=== PATIENT | male | born 1965 | race Hispanic/Latino ===

== ENCOUNTER 2017-04-28 07:06 | Inpatient (IN) | payer SELFPAY ==
[2017-04-28 08:15] LABS: Hemoglobin 16.5 gm/dl (11.8-15.2); Mean Corpuscular HGB Conc 34 % (32-34); Mean Corpuscular Hemoglobin 33 pg (28-32); Mean Corpuscular Volume 96 fl (84-94); Platelet Count 287 K/mm3 (140-440)
[2017-04-28 08:22] LABS: Albumin 3.7 g/dL (3.9-5); Calcium 7.9 mg/dL (8.4-10.2)
[2017-04-28 08:26] LABS: INR 1.03 (0.87-1.13)
[2017-04-28] MEDS ORDERED: D50W (25GM) Syringe IV ONE ×3 (08:33→11:00)
[2017-04-28] MEDS ORDERED: NACL 0.9% 1000 ML 1,000 ML IV ONE (08:42)
--- NOTE | 2017-04-28 09:06 | XRay Report ---
AP CHEST: HISTORY: Ultra mental status, possible overdose, evaluate for aspiration AP view of the chest demonstrates a normal mediastinal and cardiac contour with clear lungs and normal bony and soft tissue structures. IMPRESSION: Unremarkable AP chest. No convincing evidence for aspiration at this time.
[2017-04-28] MEDS ORDERED: D50W (25GM) Vial IV ONE (09:17)
[2017-04-28 09:28] LABS: Bacteria,Urine 1+ /HPF (Negative); Bilirubin,Urine NEG (Negative); Blood,Urine LG (Negative); Color,Urine Amber (Yellow); Mucus,Urine FEW /HPF; Nitrite,Urine NEG (Negative)
[2017-04-28] MEDS ORDERED: ZOSYN/NS 4.5GM/100ML 4.5 GM/100 ML VIAL IV ONE (09:30)
[2017-04-28] MEDS ORDERED: VITAMIN B-1 100 MG, FOLVITE 1 MG, INFUVITE 10 ML in NACL 0.9% 1000 ML 1,000 ML IV ONE (09:30)
--- NOTE | 2017-04-28 09:31 | Emergency Department Report ---
ED Altered Mental Status HPI - General Chief Complaint: Overdose Stated Complaint: OVERDOSE Time Seen by Provider: 04/28/17 08:32 Source: EMS Mode of arrival: Stretcher Limitations: Altered Mental Status, Physical Limitation - History of Present Illness Initial Comments: 52-year-old male with unknown past medical history presents to the hospital after being found at [facility] unresponsive with pinpoint pupils. GCS 3. Patient received Narcan 2 mg IV and became responsive to sternal rub with improved [place] score of 12. Her labs showed that the patient's glucose was in the 50s and gave her D50 initiated. Patient is lethargic with slurred speech. Complains of left-sided abdominal pain. He denies drug use. He denies daily alcohol use. He also has dried blood in his mouth/tongue without signs of active bleeding or laceration. No other history of present illness is available at this time. - Related Data Allergies Allergy/AdvReac Type Severity Reaction Status Date / Time No Known Allergies Allergy Unverified 04/28/17 13:42 ED Review of Systems ROS: Stated complaint: OVERDOSE Other details as noted in HPI Comment: Unobtainable due to pts medical conditions (Limited due to alteration in mental status see HPI.) ED Physical Exam - General Limitations: Altered Mental Status, Physical Limitation - Other Other exam information: General: Lethargic but arousable to tactile stimulation Head exam: Atraumatic, normocephalic Eyes exam: Normal appearance, pupil asymmetry right pupil 3 mm, left pupil 2 mm , reactive ENT: Moist mucous membrane, dry blood in mild without laceration or active bleeding Neck exam: Normal inspection, full range of motion, no meningismus nontender Respiratory exam: Clear to auscultation bilateral, no wheezes, rales, crackles Cardiovascular: Normal rate and rhythm Abdomen: Soft, nondistended, left upper quadrant scar. 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 Equal foot dorsiflexion. Slurredm speech. No facial droop. Sensation grossly intact Psychiatric: normal affect, normal mood Skin: Erythematous area to the left buttock that is blanching ED Course Vital Signs 04/28/17 04/28/17 04/28/17 07:11 07:16 07:30 Temperature 98.2 F Pulse Rate 115 H 115 H 113 H Respiratory 14 14 16 Rate Blood Pressure 144/87 144/87 134/80 Blood Pressure 134/80 [Right] O2 Sat by Pulse 92 90 94 Oximetry 04/28/17 04/28/17 04/28/17 07:46 08:00 08:16 Temperature Pulse Rate 114 H 109 H 107 H Respiratory 13 13 11 L Rate Blood Pressure 144/79 144/79 144/79 Blood Pressure [Right] O2 Sat by Pulse 94 93 93 Oximetry 04/28/17 04/28/17 04/28/17 08:30 08:46 09:00 Temperature Pulse Rate 105 H 103 H 104 H Respiratory 9 L 13 10 L Rate Blood Pressure 144/79 144/79 144/79 Blood Pressure [Right] O2 Sat by Pulse 94 92 94 Oximetry 04/28/17 04/28/17 04/28/17 09:16 09:30 09:46 Temperature Pulse Rate 106 H 105 H 101 H Respiratory 12 11 L 10 L Rate Blood Pressure 144/79 144/79 144/79 Blood Pressure [Right] O2 Sat by Pulse 94 94 94 Oximetry 04/28/17 04/28/17 04/28/17 10:28 10:30 10:46 Temperature Pulse Rate Respiratory Rate Blood Pressure 144/79 107/72 107/72 Blood Pressure [Right] O2 Sat by Pulse 94 94 93 Oximetry 04/28/17 04/28/17 04/28/17 11:00 11:16 11:30 Temperature Pulse Rate 104 H 107 H 108 H Respiratory 12 12 11 L Rate Blood Pressure 108/75 108/75 118/69 Blood Pressure [Right] O2 Sat by Pulse 88 89 89 Oximetry 04/28/17 04/28/17 04/28/17 11:46 12:00 12:16 Temperature Pulse Rate 107 H 102 H 98 H Respiratory 11 L 9 L Rate Blood Pressure 118/69 118/69 96/62 Blood Pressure [Right] O2 Sat by Pulse 92 93 94 Oximetry 04/28/17 04/28/17 04/28/17 12:30 12:46 13:00 Temperature Pulse Rate 102 H 103 H 105 H Respiratory 10 L 12 12 Rate Blood Pressure 96/62 112/69 115/70 Blood Pressure [Right] O2 Sat by Pulse 94 94 93 Oximetry 04/28/17 04/28/17 04/28/17 13:16 13:30 13:46 Temperature Pulse Rate 103 H 100 H 94 H Respiratory 8 L 9 L 9 L Rate Blood Pressure 115/70 108/74 108/74 Blood Pressure [Right] O2 Sat by Pulse 96 94 96 Oximetry 04/28/17 13:52 Temperature Pulse Rate 96 H Respiratory 11 L Rate Blood Pressure Blood Pressure 108/74 [Right] O2 Sat by Pulse Oximetry - Reevaluation(s) Reevaluation #1: 04/28/17 15:36 Patient remains lethargic during the ED stay. Patient required multiple doses of D50 for recurrent hypoglycemia but has remained stable for several hours. Stool samples ordered at this time because patient is having multiple episodes of diarrhea in the ED. - Lab Data Result diagrams: 04/28/17 07:43 04/28/17 07:43 Lab Results 04/28/17 04/28/17 04/28/17 Range/Units 07:43 07:43 07:43 WBC 34.6 H (4.5-11.0) K/mm3 RBC 5.00 (3.65-5.03) M/mm3 Hgb 16.5 H (11.8-15.2) gm/dl Hct 48.0 H (35.5-45.6) % MCV 96 H (84-94) fl MCH 33 H (28-32) pg MCHC 34 (32-34) % RDW 16.0 H (13.2-15.2) % Plt Count 287 (140-440) K/mm3 Add Manual Diff Complete Total Counted 100 Seg Neuts % (Manual) 90.0 H (40.0-70.0) % Band Neutrophils % 1.0 % Lymphocytes % (Manual) 2.0 L (13.4-35.0) % Reactive Lymphs % (Man) 0 % Monocytes % (Manual) 7.0 (0.0-7.3) % Eosinophils % (Manual) 0 (0.0-4.3) % Basophils % (Manual) 0 (0.0-1.8) % Metamyelocytes % 0 % Myelocytes % 0 % Promyelocytes % 0 % Blast Cells % 0 % Nucleated RBC % Not Reportable Seg Neutrophils # Man 31.1 H (1.8-7.7) K/mm3 Band Neutrophils # 0.3 K/mm3 Lymphocytes # (Manual) 0.7 L (1.2-5.4) K/mm3 Abs React Lymphs (Man) 0.0 K/mm3 Monocytes # (Manual) 2.4 H (0.0-0.8) K/mm3 Eosinophils # (Manual) 0.0 (0.0-0.4) K/mm3 Basophils # (Manual) 0.0 (0.0-0.1) K/mm3 Metamyelocytes # 0.0 K/mm3 Myelocytes # 0.0 K/mm3 Promyelocytes # 0.0 K/mm3 Blast Cells # 0.0 K/mm3 WBC Morphology Not Reportable Hypersegmented Neuts Not Reportable Hyposegmented Neuts Not Reportable Hypogranular Neuts Not Reportable Smudge Cells Not Reportable Toxic Granulation Not Reportable Toxic Vacuolation Not Reportable Dohle Bodies Not Reportable Pelger-Huet Anomaly Not Reportable Merlene Rods Not Reportable Platelet Estimate Not Reportable Clumped Platelets Not Reportable Plt Clumps, EDTA Not Reportable Large Platelets Not Reportable Giant Platelets Not Reportable Platelet Satelliting Not Reportable Plt Morphology Comment Not Reportable RBC Morphology Normal Dimorphic RBCs Not Reportable Polychromasia Not Reportable Hypochromasia Not Reportable Poikilocytosis Not Reportable Anisocytosis Not Reportable Microcytosis Not Reportable Macrocytosis Not Reportable Spherocytes Not Reportable Pappenheimer Bodies Not Reportable Sickle Cells Not Reportable Target Cells Not Reportable Tear Drop Cells Not Reportable Ovalocytes Not Reportable Helmet Cells Not Reportable Singer-[place] Bodies Not Reportable [place] Rings Not Reportable [place] Cells Not Reportable Bite Cells Not Reportable Crenated Cell Not Reportable Elliptocytes Not Reportable Acanthocytes (Spur) Not Reportable Rouleaux Not Reportable Hemoglobin C Crystals Not Reportable Schistocytes Not Reportable Malaria parasites Not Reportable Gopi Bodies Not Reportable Hem Pathologist Commnt No PT 14.0 (12.2-14.9) Sec. INR 1.03 (0.87-1.13) APTT (24.2-36.6) Sec. VBG pH (7.320-7.420) Sodium (137-145) mmol/L Potassium (3.6-5.0) mmol/L Chloride (98-107) mmol/L Carbon Dioxide (22-30) mmol/L Anion Gap mmol/L BUN (9-20) mg/dL Creatinine (0.8-1.5) mg/dL Estimated GFR ml/min BUN/Creatinine Ratio % Glucose (75-100) mg/dL POC Glucose (70-105) Osmolality 290 Mosm/kg Lactic Acid (0.7-2.0) mmol/L Calcium (8.4-10.2) mg/dL Magnesium (1.7-2.3) mg/dL Total Bilirubin (0.1-1.2) mg/dL AST (5-40) units/L ALT (7-56) units/L Alkaline Phosphatase (35-129) units/L Ammonia (25-60) umol/L Total Creatine Kinase (55-170) units/L CK-MB (CK-2) (0.0-4.0) ng/mL CK-MB (CK-2) Rel Index (0-4) Troponin T (0.00-0.029) ng/mL Total Protein (6.3-8.2) g/dL Albumin (3.9-5) g/dL Albumin/Globulin Ratio % Triglycerides (2-149) mg/dL Cholesterol (50-199) mg/dL LDL Cholesterol Direct (50-130) mg/dL HDL Cholesterol (40-59) mg/dL Cholesterol/HDL Ratio % Lipase (13-60) units/L Urine Color (Yellow) Urine Turbidity (Clear) Urine pH (5.0-7.0) Ur Specific Anna (1.003-1.030) Urine Protein (Negative) mg/dL Urine Glucose (UA) (Negative) mg/dL Urine Ketones (Negative) mg/dL Urine Blood (Negative) Urine Nitrite (Negative) Urine Bilirubin (Negative) Urine Urobilinogen (<2.0) mg/dL Ur Leukocyte Esterase (Negative) Urine WBC (Auto) (0.0-6.0) /HPF Urine RBC (Auto) (0.0-6.0) /HPF U Epithel Cells (Auto) (0-13.0) /HPF Urine Bacteria (Auto) (Negative) /HPF Urine Mucus /HPF Salicylates (2.8-20.0) mg/dL Urine Opiates Screen Urine Methadone Screen Acetaminophen (10.0-30.0) ug/mL Ur Barbiturates Screen Ur Phencyclidine Scrn Ur Amphetamines Screen Phenobarbital < 2.4 L (15.0-40.0) mg/L U Benzodiazepines Scrn Urine Cocaine Screen U Marijuana (THC) Screen Drugs of Abuse Note Plasma/Serum Alcohol (0-0.07) gm% Hepatitis A IgM Ab (NonReactive) Hep Bs Antigen (Negative) Hep B Core IgM Ab (NonReactive) Hepatitis C Antibody (NonReactive) 04/28/17 04/28/17 04/28/17 Range/Units 07:43 07:43 07:47 WBC (4.5-11.0) K/mm3 RBC (3.65-5.03) M/mm3 Hgb (11.8-15.2) gm/dl Hct (35.5-45.6) % MCV (84-94) fl MCH (28-32) pg MCHC (32-34) % RDW (13.2-15.2) % Plt Count (140-440) K/mm3 Add Manual Diff Total Counted Seg Neuts % (Manual) (40.0-70.0) % Band Neutrophils % % Lymphocytes % (Manual) (13.4-35.0) % Reactive Lymphs % (Man) % Monocytes % (Manual) (0.0-7.3) % Eosinophils % (Manual) (0.0-4.3) % Basophils % (Manual) (0.0-1.8) % Metamyelocytes % % Myelocytes % % Promyelocytes % % Blast Cells % % Nucleated RBC % Seg Neutrophils # Man (1.8-7.7) K/mm3 Band Neutrophils # K/mm3 Lymphocytes # (Manual) (1.2-5.4) K/mm3 Abs React Lymphs (Man) K/mm3 Monocytes # (Manual) (0.0-0.8) K/mm3 Eosinophils # (Manual) (0.0-0.4) K/mm3 Basophils # (Manual) (0.0-0.1) K/mm3 Metamyelocytes # K/mm3 Myelocytes # K/mm3 Promyelocytes # K/mm3 Blast Cells # K/mm3 WBC Morphology Hypersegmented Neuts Hyposegmented Neuts Hypogranular Neuts Smudge Cells Toxic Granulation Toxic Vacuolation Dohle Bodies Pelger-Huet Anomaly Merlene Rods Platelet Estimate Clumped Platelets Plt Clumps, EDTA Large Platelets Giant Platelets Platelet Satelliting Plt Morphology Comment RBC Morphology Dimorphic RBCs Polychromasia Hypochromasia Poikilocytosis Anisocytosis Microcytosis Macrocytosis Spherocytes Pappenheimer Bodies Sickle Cells Target Cells Tear Drop Cells Ovalocytes Helmet Cells Singer-[place] Bodies Lam[place] Rings Victor[place] Cells Bite Cells Crenated Cell Elliptocytes Acanthocytes (Spur) Rouleaux Hemoglobin C Crystals Schistocytes Malaria parasites Gopi Bodies Hem Pathologist Commnt PT (12.2-14.9) Sec. INR (0.87-1.13) APTT 29.2 (24.2-36.6) Sec. VBG pH (7.320-7.420) Sodium 144 (137-145) mmol/L Potassium 3.5 L (3.6-5.0) mmol/L Chloride 105.2 (98-107) mmol/L Carbon Dioxide 21 L (22-30) mmol/L Anion Gap 21 mmol/L BUN 23 H (9-20) mg/dL Creatinine 1.4 (0.8-1.5) mg/dL Estimated GFR 54 ml/min BUN/Creatinine Ratio 16 % Glucose 25 L* (75-100) mg/dL POC Glucose (70-105) Osmolality Mosm/kg Lactic Acid (0.7-2.0) mmol/L Calcium 7.9 L (8.4-10.2) mg/dL Magnesium (1.7-2.3) mg/dL Total Bilirubin 1.90 H (0.1-1.2) mg/dL AST 342 H (5-40) units/L ALT 139 H (7-56) units/L Alkaline Phosphatase 147 H (35-129) units/L Ammonia (25-60) umol/L Total Creatine Kinase 7440 H (55-170) units/L CK-MB (CK-2) (0.0-4.0) ng/mL CK-MB (CK-2) Rel Index (0-4) Troponin T (0.00-0.029) ng/mL Total Protein 6.8 (6.3-8.2) g/dL Albumin 3.7 L (3.9-5) g/dL Albumin/Globulin Ratio 1.2 % Triglycerides (2-149) mg/dL Cholesterol (50-199) mg/dL LDL Cholesterol Direct (50-130) mg/dL HDL Cholesterol (40-59) mg/dL Cholesterol/HDL Ratio % Lipase (13-60) units/L Urine Color (Yellow) Urine Turbidity (Clear) Urine pH (5.0-7.0) Ur Specific Anna (1.003-1.030) Urine Protein (Negative) mg/dL Urine Glucose (UA) (Negative) mg/dL Urine Ketones (Negative) mg/dL Urine Blood (Negative) Urine Nitrite (Negative) Urine Bilirubin (Negative) Urine Urobilinogen (<2.0) mg/dL Ur Leukocyte Esterase (Negative) Urine WBC (Auto) (0.0-6.0) /HPF Urine RBC (Auto) (0.0-6.0) /HPF U Epithel Cells (Auto) (0-13.0) /HPF Urine Bacteria (Auto) (Negative) /HPF Urine Mucus /HPF Salicylates (2.8-20.0) mg/dL Urine Opiates Screen Urine Methadone Screen Acetaminophen (10.0-30.0) ug/mL Ur Barbiturates Screen Ur Phencyclidine Scrn Ur Amphetamines Screen Phenobarbital (15.0-40.0) mg/L U Benzodiazepines Scrn Urine Cocaine Screen U Marijuana (THC) Screen Drugs of Abuse Note Plasma/Serum Alcohol (0-0.07) gm% Hepatitis A IgM Ab (NonReactive) Hep Bs Antigen (Negative) Hep B Core IgM Ab (NonReactive) Hepatitis C Antibody (NonReactive) 04/28/17 04/28/17 04/28/17 Range/Units 08:36 08:57 08:57 WBC (4.5-11.0) K/mm3 RBC (3.65-5.03) M/mm3 Hgb (11.8-15.2) gm/dl Hct (35.5-45.6) % MCV (84-94) fl MCH (28-32) pg MCHC (32-34) % RDW (13.2-15.2) % Plt Count (140-440) K/mm3 Add Manual Diff Total Counted Seg Neuts % (Manual) (40.0-70.0) % Band Neutrophils % % Lymphocytes % (Manual) (13.4-35.0) % Reactive Lymphs % (Man) % Monocytes % (Manual) (0.0-7.3) % Eosinophils % (Manual) (0.0-4.3) % Basophils % (Manual) (0.0-1.8) % Metamyelocytes % % Myelocytes % % Promyelocytes % % Blast Cells % % Nucleated RBC % Seg Neutrophils # Man (1.8-7.7) K/mm3 Band Neutrophils # K/mm3 Lymphocytes # (Manual) (1.2-5.4) K/mm3 Abs React Lymphs (Man) K/mm3 Monocytes # (Manual) (0.0-0.8) K/mm3 Eosinophils # (Manual) (0.0-0.4) K/mm3 Basophils # (Manual) (0.0-0.1) K/mm3 Metamyelocytes # K/mm3 Myelocytes # K/mm3 Promyelocytes # K/mm3 Blast Cells # K/mm3 WBC Morphology Hypersegmented Neuts Hyposegmented Neuts Hypogranular Neuts Smudge Cells Toxic Granulation Toxic Vacuolation Dohle Bodies Pelger-Huet Anomaly Merlene Rods Platelet Estimate Clumped Platelets Plt Clumps, EDTA Large Platelets Giant Platelets Platelet Satelliting Plt Morphology Comment RBC Morphology Dimorphic RBCs Polychromasia Hypochromasia Poikilocytosis Anisocytosis Microcytosis Macrocytosis Spherocytes Pappenheimer Bodies Sickle Cells Target Cells Tear Drop Cells Ovalocytes Helmet Cells Singer-[place] Bodies Lam[place] Rings [place] Cells Bite Cells Crenated Cell Elliptocytes Acanthocytes (Spur) Rouleaux Hemoglobin C Crystals Schistocytes Malaria parasites Gopi Bodies Hem Pathologist Commnt PT (12.2-14.9) Sec. INR (0.87-1.13) APTT (24.2-36.6) Sec. VBG pH (7.320-7.420) Sodium (137-145) mmol/L Potassium (3.6-5.0) mmol/L Chloride (98-107) mmol/L Carbon Dioxide (22-30) mmol/L Anion Gap mmol/L BUN (9-20) mg/dL Creatinine (0.8-1.5) mg/dL Estimated GFR ml/min BUN/Creatinine Ratio % Glucose (75-100) mg/dL POC Glucose < 40 L (70-105) Osmolality Mosm/kg Lactic Acid (0.7-2.0) mmol/L Calcium (8.4-10.2) mg/dL Magnesium (1.7-2.3) mg/dL Total Bilirubin (0.1-1.2) mg/dL AST (5-40) units/L ALT (7-56) units/L Alkaline Phosphatase (35-129) units/L Ammonia 72.0 H (25-60) umol/L Total Creatine Kinase (55-170) units/L CK-MB (CK-2) (0.0-4.0) ng/mL CK-MB (CK-2) Rel Index (0-4) Troponin T (0.00-0.029) ng/mL Total Protein (6.3-8.2) g/dL Albumin (3.9-5) g/dL Albumin/Globulin Ratio % Triglycerides (2-149) mg/dL Cholesterol (50-199) mg/dL LDL Cholesterol Direct (50-130) mg/dL HDL Cholesterol (40-59) mg/dL Cholesterol/HDL Ratio % Lipase (13-60) units/L Urine Color (Yellow) Urine Turbidity (Clear) Urine pH (5.0-7.0) Ur Specific Anna (1.003-1.030) Urine Protein (Negative) mg/dL Urine Glucose (UA) (Negative) mg/dL Urine Ketones (Negative) mg/dL Urine Blood (Negative) Urine Nitrite (Negative) Urine Bilirubin (Negative) Urine Urobilinogen (<2.0) mg/dL Ur Leukocyte Esterase (Negative) Urine WBC (Auto) (0.0-6.0) /HPF Urine RBC (Auto) (0.0-6.0) /HPF U Epithel Cells (Auto) (0-13.0) /HPF Urine Bacteria (Auto) (Negative) /HPF Urine Mucus /HPF Salicylates (2.8-20.0) mg/dL Urine Opiates Screen Urine Methadone Screen Acetaminophen (10.0-30.0) ug/mL Ur Barbiturates Screen Ur Phencyclidine Scrn Ur Amphetamines Screen Phenobarbital (15.0-40.0) mg/L U Benzodiazepines Scrn Urine Cocaine Screen U Marijuana (THC) Screen Drugs of Abuse Note Plasma/Serum Alcohol (0-0.07) gm% Hepatitis A IgM Ab Non-reactive (NonReactive) Hep Bs Antigen Non-reactive (Negative) Hep B Core IgM Ab Non-reactive (NonReactive) Hepatitis C Antibody Non-reactive (NonReactive) 04/28/17 04/28/17 04/28/17 Range/Units 08:57 08:57 08:57 WBC (4.5-11.0) K/mm3 RBC (3.65-5.03) M/mm3 Hgb (11.8-15.2) gm/dl Hct (35.5-45.6) % MCV (84-94) fl MCH (28-32) pg MCHC (32-34) % RDW (13.2-15.2) % Plt Count (140-440) K/mm3 Add Manual Diff Total Counted Seg Neuts % (Manual) (40.0-70.0) % Band Neutrophils % % Lymphocytes % (Manual) (13.4-35.0) % Reactive Lymphs % (Man) % Monocytes % (Manual) (0.0-7.3) % Eosinophils % (Manual) (0.0-4.3) % Basophils % (Manual) (0.0-1.8) % Metamyelocytes % % Myelocytes % % Promyelocytes % % Blast Cells % % Nucleated RBC % Seg Neutrophils # Man (1.8-7.7) K/mm3 Band Neutrophils # K/mm3 Lymphocytes # (Manual) (1.2-5.4) K/mm3 Abs React Lymphs (Man) K/mm3 Monocytes # (Manual) (0.0-0.8) K/mm3 Eosinophils # (Manual) (0.0-0.4) K/mm3 Basophils # (Manual) (0.0-0.1) K/mm3 Metamyelocytes # K/mm3 Myelocytes # K/mm3 Promyelocytes # K/mm3 Blast Cells # K/mm3 WBC Morphology Hypersegmented Neuts Hyposegmented Neuts Hypogranular Neuts Smudge Cells Toxic Granulation Toxic Vacuolation Dohle Bodies Pelger-Huet Anomaly Merlene Rods Platelet Estimate Clumped Platelets Plt Clumps, EDTA Large Platelets Giant Platelets Platelet Satelliting Plt Morphology Comment RBC Morphology Dimorphic RBCs Polychromasia Hypochromasia Poikilocytosis Anisocytosis Microcytosis Macrocytosis Spherocytes Pappenheimer Bodies Sickle Cells Target Cells Tear Drop Cells Ovalocytes Helmet Cells Singer-[place] Bodies Lam[place] Rings Victor[place] Cells Bite Cells Crenated Cell Elliptocytes Acanthocytes (Spur) Rouleaux Hemoglobin C Crystals Schistocytes Malaria parasites Gopi Bodies Hem Pathologist Commnt PT (12.2-14.9) Sec. INR (0.87-1.13) APTT (24.2-36.6) Sec. VBG pH 7.275 L (7.320-7.420) Sodium (137-145) mmol/L Potassium (3.6-5.0) mmol/L Chloride (98-107) mmol/L Carbon Dioxide (22-30) mmol/L Anion Gap mmol/L BUN (9-20) mg/dL Creatinine (0.8-1.5) mg/dL Estimated GFR ml/min BUN/Creatinine Ratio % Glucose (75-100) mg/dL POC Glucose (70-105) Osmolality Mosm/kg Lactic Acid 2.90 H* (0.7-2.0) mmol/L Calcium (8.4-10.2) mg/dL Magnesium 2.30 (1.7-2.3) mg/dL Total Bilirubin (0.1-1.2) mg/dL AST (5-40) units/L ALT (7-56) units/L Alkaline Phosphatase (35-129) units/L Ammonia (25-60) umol/L Total Creatine Kinase (55-170) units/L CK-MB (CK-2) (0.0-4.0) ng/mL CK-MB (CK-2) Rel Index (0-4) Troponin T (0.00-0.029) ng/mL Total Protein (6.3-8.2) g/dL Albumin (3.9-5) g/dL Albumin/Globulin Ratio % Triglycerides (2-149) mg/dL Cholesterol (50-199) mg/dL LDL Cholesterol Direct (50-130) mg/dL HDL Cholesterol (40-59) mg/dL Cholesterol/HDL Ratio % Lipase (13-60) units/L Urine Color (Yellow) Urine Turbidity (Clear) Urine pH (5.0-7.0) Ur Specific Anna (1.003-1.030) Urine Protein (Negative) mg/dL Urine Glucose (UA) (Negative) mg/dL Urine Ketones (Negative) mg/dL Urine Blood (Negative) Urine Nitrite (Negative) Urine Bilirubin (Negative) Urine Urobilinogen (<2.0) mg/dL Ur Leukocyte Esterase (Negative) Urine WBC (Auto) (0.0-6.0) /HPF Urine RBC (Auto) (0.0-6.0) /HPF U Epithel Cells (Auto) (0-13.0) /HPF Urine Bacteria (Auto) (Negative) /HPF Urine Mucus /HPF Salicylates (2.8-20.0) mg/dL Urine Opiates Screen Urine Methadone Screen Acetaminophen (10.0-30.0) ug/mL Ur Barbiturates Screen Ur Phencyclidine Scrn Ur Amphetamines Screen Phenobarbital (15.0-40.0) mg/L U Benzodiazepines Scrn Urine Cocaine Screen U Marijuana (THC) Screen Drugs of Abuse Note Plasma/Serum Alcohol (0-0.07) gm% Hepatitis A IgM Ab (NonReactive) Hep Bs Antigen (Negative) Hep B Core IgM Ab (NonReactive) Hepatitis C Antibody (NonReactive) 04/28/17 04/28/17 04/28/17 Range/Units 09:09 09:09 09:09 WBC (4.5-11.0) K/mm3 RBC (3.65-5.03) M/mm3 Hgb (11.8-15.2) gm/dl Hct (35.5-45.6) % MCV (84-94) fl MCH (28-32) pg MCHC (32-34) % RDW (13.2-15.2) % Plt Count (140-440) K/mm3 Add Manual Diff Total Counted Seg Neuts % (Manual) (40.0-70.0) % Band Neutrophils % % Lymphocytes % (Manual) (13.4-35.0) % Reactive Lymphs % (Man) % Monocytes % (Manual) (0.0-7.3) % Eosinophils % (Manual) (0.0-4.3) % Basophils % (Manual) (0.0-1.8) % Metamyelocytes % % Myelocytes % % Promyelocytes % % Blast Cells % % Nucleated RBC % Seg Neutrophils # Man (1.8-7.7) K/mm3 Band Neutrophils # K/mm3 Lymphocytes # (Manual) (1.2-5.4) K/mm3 Abs React Lymphs (Man) K/mm3 Monocytes # (Manual) (0.0-0.8) K/mm3 Eosinophils # (Manual) (0.0-0.4) K/mm3 Basophils # (Manual) (0.0-0.1) K/mm3 Metamyelocytes # K/mm3 Myelocytes # K/mm3 Promyelocytes # K/mm3 Blast Cells # K/mm3 WBC Morphology Hypersegmented Neuts Hyposegmented Neuts Hypogranular Neuts Smudge Cells Toxic Granulation Toxic Vacuolation Dohle Bodies Pelger-Huet Anomaly Merlene Rods Platelet Estimate Clumped Platelets Plt Clumps, EDTA Large Platelets Giant Platelets Platelet Satelliting Plt Morphology Comment RBC Morphology Dimorphic RBCs Polychromasia Hypochromasia Poikilocytosis Anisocytosis Microcytosis Macrocytosis Spherocytes Pappenheimer Bodies Sickle Cells Target Cells Tear Drop Cells Ovalocytes Helmet Cells Singer-[place] Bodies Lamont Rings [place] Cells Bite Cells Crenated Cell Elliptocytes Acanthocytes (Spur) Rouleaux Hemoglobin C Crystals Schistocytes Malaria parasites Gopi Bodies Hem Pathologist Commnt PT (12.2-14.9) Sec. INR (0.87-1.13) APTT (24.2-36.6) Sec. VBG pH (7.320-7.420) Sodium (137-145) mmol/L Potassium (3.6-5.0) mmol/L Chloride (98-107) mmol/L Carbon Dioxide (22-30) mmol/L Anion Gap mmol/L BUN (9-20) mg/dL Creatinine (0.8-1.5) mg/dL Estimated GFR ml/min BUN/Creatinine Ratio % Glucose (75-100) mg/dL POC Glucose (70-105) Osmolality Mosm/kg Lactic Acid (0.7-2.0) mmol/L Calcium (8.4-10.2) mg/dL Magnesium (1.7-2.3) mg/dL Total Bilirubin (0.1-1.2) mg/dL AST (5-40) units/L ALT (7-56) units/L Alkaline Phosphatase (35-129) units/L Ammonia (25-60) umol/L Total Creatine Kinase (55-170) units/L CK-MB (CK-2) (0.0-4.0) ng/mL CK-MB (CK-2) Rel Index (0-4) Troponin T (0.00-0.029) ng/mL Total Protein (6.3-8.2) g/dL Albumin (3.9-5) g/dL Albumin/Globulin Ratio % Triglycerides (2-149) mg/dL Cholesterol (50-199) mg/dL LDL Cholesterol Direct (50-130) mg/dL HDL Cholesterol (40-59) mg/dL Cholesterol/HDL Ratio % Lipase (13-60) units/L Urine Color Diamante (Yellow) Urine Turbidity Slightly-cloudy (Clear) Urine pH 5.0 (5.0-7.0) Ur Specific Anna 1.023 (1.003-1.030) Urine Protein 100 mg/dl (Negative) mg/dL Urine Glucose (UA) Neg (Negative) mg/dL Urine Ketones Neg (Negative) mg/dL Urine Blood Lg (Negative) Urine Nitrite Neg (Negative) Urine Bilirubin Neg (Negative) Urine Urobilinogen 4.0 (<2.0) mg/dL Ur Leukocyte Esterase Neg (Negative) Urine WBC (Auto) 15.0 H (0.0-6.0) /HPF Urine RBC (Auto) 11.0 (0.0-6.0) /HPF U Epithel Cells (Auto) 1.0 (0-13.0) /HPF Urine Bacteria (Auto) 1+ (Negative) /HPF Urine Mucus Few /HPF Salicylates < 0.3 L (2.8-20.0) mg/dL Urine Opiates Screen Presumptive positive Urine Methadone Screen Presumptive negative Acetaminophen (10.0-30.0) ug/mL Ur Barbiturates Screen Presumptive negative Ur Phencyclidine Scrn Presumptive negative Ur Amphetamines Screen Presumptive positive Phenobarbital (15.0-40.0) mg/L U Benzodiazepines Scrn Presumptive positive Urine Cocaine Screen Presumptive positive U Marijuana (THC) Screen Presumptive negative Drugs of Abuse Note Disclamer Plasma/Serum Alcohol (0-0.07) gm% Hepatitis A IgM Ab (NonReactive) Hep Bs Antigen (Negative) Hep B Core IgM Ab (NonReactive) Hepatitis C Antibody (NonReactive) 04/28/17 04/28/17 04/28/17 Range/Units 09:09 09:09 09:20 WBC (4.5-11.0) K/mm3 RBC (3.65-5.03) M/mm3 Hgb (11.8-15.2) gm/dl Hct (35.5-45.6) % MCV (84-94) fl MCH (28-32) pg MCHC (32-34) % RDW (13.2-15.2) % Plt Count (140-440) K/mm3 Add Manual Diff Total Counted Seg Neuts % (Manual) (40.0-70.0) % Band Neutrophils % % Lymphocytes % (Manual) (13.4-35.0) % Reactive Lymphs % (Man) % Monocytes % (Manual) (0.0-7.3) % Eosinophils % (Manual) (0.0-4.3) % Basophils % (Manual) (0.0-1.8) % Metamyelocytes % % Myelocytes % % Promyelocytes % % Blast Cells % % Nucleated RBC % Seg Neutrophils # Man (1.8-7.7) K/mm3 Band Neutrophils # K/mm3 Lymphocytes # (Manual) (1.2-5.4) K/mm3 Abs React Lymphs (Man) K/mm3 Monocytes # (Manual) (0.0-0.8) K/mm3 Eosinophils # (Manual) (0.0-0.4) K/mm3 Basophils # (Manual) (0.0-0.1) K/mm3 Metamyelocytes # K/mm3 Myelocytes # K/mm3 Promyelocytes # K/mm3 Blast Cells # K/mm3 WBC Morphology Hypersegmented Neuts Hyposegmented Neuts Hypogranular Neuts Smudge Cells Toxic Granulation Toxic Vacuolation Dohle Bodies Pelger-Huet Anomaly Merlene Rods Platelet Estimate Clumped Platelets Plt Clumps, EDTA Large Platelets Giant Platelets Platelet Satelliting Plt Morphology Comment RBC Morphology Dimorphic RBCs Polychromasia Hypochromasia Poikilocytosis Anisocytosis Microcytosis Macrocytosis Spherocytes Pappenheimer Bodies Sickle Cells Target Cells Tear Drop Cells Ovalocytes Helmet Cells Singer-[place] Bodies Lamont Rings Victorino Cells Bite Cells Crenated Cell Elliptocytes Acanthocytes (Spur) Rouleaux Hemoglobin C Crystals Schistocytes Malaria parasites Gopi Bodies Hem Pathologist Commnt PT (12.2-14.9) Sec. INR (0.87-1.13) APTT (24.2-36.6) Sec. VBG pH (7.320-7.420) Sodium (137-145) mmol/L Potassium (3.6-5.0) mmol/L Chloride (98-107) mmol/L Carbon Dioxide (22-30) mmol/L Anion Gap mmol/L BUN (9-20) mg/dL Creatinine (0.8-1.5) mg/dL Estimated GFR ml/min BUN/Creatinine Ratio % Glucose (75-100) mg/dL POC Glucose 51 L (70-105) Osmolality Mosm/kg Lactic Acid (0.7-2.0) mmol/L Calcium (8.4-10.2) mg/dL Magnesium (1.7-2.3) mg/dL Total Bilirubin (0.1-1.2) mg/dL AST (5-40) units/L ALT (7-56) units/L Alkaline Phosphatase (35-129) units/L Ammonia (25-60) umol/L Total Creatine Kinase (55-170) units/L CK-MB (CK-2) (0.0-4.0) ng/mL CK-MB (CK-2) Rel Index (0-4) Troponin T (0.00-0.029) ng/mL Total Protein (6.3-8.2) g/dL Albumin (3.9-5) g/dL Albumin/Globulin Ratio % Triglycerides (2-149) mg/dL Cholesterol (50-199) mg/dL LDL Cholesterol Direct (50-130) mg/dL HDL Cholesterol (40-59) mg/dL Cholesterol/HDL Ratio % Lipase (13-60) units/L Urine Color (Yellow) Urine Turbidity (Clear) Urine pH (5.0-7.0) Ur Specific Anna (1.003-1.030) Urine Protein (Negative) mg/dL Urine Glucose (UA) (Negative) mg/dL Urine Ketones (Negative) mg/dL Urine Blood (Negative) Urine Nitrite (Negative) Urine Bilirubin (Negative) Urine Urobilinogen (<2.0) mg/dL Ur Leukocyte Esterase (Negative) Urine WBC (Auto) (0.0-6.0) /HPF Urine RBC (Auto) (0.0-6.0) /HPF U Epithel Cells (Auto) (0-13.0) /HPF Urine Bacteria (Auto) (Negative) /HPF Urine Mucus /HPF Salicylates (2.8-20.0) mg/dL Urine Opiates Screen Urine Methadone Screen Acetaminophen < 15.0 (10.0-30.0) ug/mL Ur Barbiturates Screen Ur Phencyclidine Scrn Ur Amphetamines Screen Phenobarbital (15.0-40.0) mg/L U Benzodiazepines Scrn Urine Cocaine Screen U Marijuana (THC) Screen Drugs of Abuse Note Plasma/Serum Alcohol < 0.01 (0-0.07) gm% Hepatitis A IgM Ab (NonReactive) Hep Bs Antigen (Negative) Hep B Core IgM Ab (NonReactive) Hepatitis C Antibody (NonReactive) 04/28/17 04/28/17 04/28/17 Range/Units 10:40 12:47 13:23 WBC (4.5-11.0) K/mm3 RBC (3.65-5.03) M/mm3 Hgb (11.8-15.2) gm/dl Hct (35.5-45.6) % MCV (84-94) fl MCH (28-32) pg MCHC (32-34) % RDW (13.2-15.2) % Plt Count (140-440) K/mm3 Add Manual Diff Total Counted Seg Neuts % (Manual) (40.0-70.0) % Band Neutrophils % % Lymphocytes % (Manual) (13.4-35.0) % Reactive Lymphs % (Man) % Monocytes % (Manual) (0.0-7.3) % Eosinophils % (Manual) (0.0-4.3) % Basophils % (Manual) (0.0-1.8) % Metamyelocytes % % Myelocytes % % Promyelocytes % % Blast Cells % % Nucleated RBC % Seg Neutrophils # Man (1.8-7.7) K/mm3 Band Neutrophils # K/mm3 Lymphocytes # (Manual) (1.2-5.4) K/mm3 Abs React Lymphs (Man) K/mm3 Monocytes # (Manual) (0.0-0.8) K/mm3 Eosinophils # (Manual) (0.0-0.4) K/mm3 Basophils # (Manual) (0.0-0.1) K/mm3 Metamyelocytes # K/mm3 Myelocytes # K/mm3 Promyelocytes # K/mm3 Blast Cells # K/mm3 WBC Morphology Hypersegmented Neuts Hyposegmented Neuts Hypogranular Neuts Smudge Cells Toxic Granulation Toxic Vacuolation Dohle Bodies Pelger-Huet Anomaly Merlene Rods Platelet Estimate Clumped Platelets Plt Clumps, EDTA Large Platelets Giant Platelets Platelet Satelliting Plt Morphology Comment RBC Morphology Dimorphic RBCs Polychromasia Hypochromasia Poikilocytosis Anisocytosis Microcytosis Macrocytosis Spherocytes Pappenheimer Bodies Sickle Cells Target Cells Tear Drop Cells Ovalocytes Helmet Cells Singer-[place] Bodies Lamont Rings Victorino Cells Bite Cells Crenated Cell Elliptocytes Acanthocytes (Spur) Rouleaux Hemoglobin C Crystals Schistocytes Malaria parasites Gopi Bodies Hem Pathologist Commnt PT (12.2-14.9) Sec. INR (0.87-1.13) APTT (24.2-36.6) Sec. VBG pH (7.320-7.420) Sodium (137-145) mmol/L Potassium (3.6-5.0) mmol/L Chloride (98-107) mmol/L Carbon Dioxide (22-30) mmol/L Anion Gap mmol/L BUN (9-20) mg/dL Creatinine (0.8-1.5) mg/dL Estimated GFR ml/min BUN/Creatinine Ratio % Glucose (75-100) mg/dL POC Glucose 73 79 (70-105) Osmolality Mosm/kg Lactic Acid (0.7-2.0) mmol/L Calcium (8.4-10.2) mg/dL Magnesium (1.7-2.3) mg/dL Total Bilirubin (0.1-1.2) mg/dL AST (5-40) units/L ALT (7-56) units/L Alkaline Phosphatase (35-129) units/L Ammonia (25-60) umol/L Total Creatine Kinase 5552 H (55-170) units/L CK-MB (CK-2) 56.2 H (0.0-4.0) ng/mL CK-MB (CK-2) Rel Index 1.0 (0-4) Troponin T 0.059 H (0.00-0.029) ng/mL Total Protein (6.3-8.2) g/dL Albumin (3.9-5) g/dL Albumin/Globulin Ratio % Triglycerides (2-149) mg/dL Cholesterol (50-199) mg/dL LDL Cholesterol Direct (50-130) mg/dL HDL Cholesterol (40-59) mg/dL Cholesterol/HDL Ratio % Lipase (13-60) units/L Urine Color (Yellow) Urine Turbidity (Clear) Urine pH (5.0-7.0) Ur Specific Anna (1.003-1.030) Urine Protein (Negative) mg/dL Urine Glucose (UA) (Negative) mg/dL Urine Ketones (Negative) mg/dL Urine Blood (Negative) Urine Nitrite (Negative) Urine Bilirubin (Negative) Urine Urobilinogen (<2.0) mg/dL Ur Leukocyte Esterase (Negative) Urine WBC (Auto) (0.0-6.0) /HPF Urine RBC (Auto) (0.0-6.0) /HPF U Epithel Cells (Auto) (0-13.0) /HPF Urine Bacteria (Auto) (Negative) /HPF Urine Mucus /HPF Salicylates (2.8-20.0) mg/dL Urine Opiates Screen Urine Methadone Screen Acetaminophen (10.0-30.0) ug/mL Ur Barbiturates Screen Ur Phencyclidine Scrn Ur Amphetamines Screen Phenobarbital (15.0-40.0) mg/L U Benzodiazepines Scrn Urine Cocaine Screen U Marijuana (THC) Screen Drugs of Abuse Note Plasma/Serum Alcohol (0-0.07) gm% Hepatitis A IgM Ab (NonReactive) Hep Bs Antigen (Negative) Hep B Core IgM Ab (NonReactive) Hepatitis C Antibody (NonReactive) 04/28/17 04/28/17 04/28/17 Range/Units 14:53 Unknown Unknown WBC (4.5-11.0) K/mm3 RBC (3.65-5.03) M/mm3 Hgb (11.8-15.2) gm/dl Hct (35.5-45.6) % MCV (84-94) fl MCH (28-32) pg MCHC (32-34) % RDW (13.2-15.2) % Plt Count (140-440) K/mm3 Add Manual Diff Total Counted Seg Neuts % (Manual) (40.0-70.0) % Band Neutrophils % % Lymphocytes % (Manual) (13.4-35.0) % Reactive Lymphs % (Man) % Monocytes % (Manual) (0.0-7.3) % Eosinophils % (Manual) (0.0-4.3) % Basophils % (Manual) (0.0-1.8) % Metamyelocytes % % Myelocytes % % Promyelocytes % % Blast Cells % % Nucleated RBC % Seg Neutrophils # Man (1.8-7.7) K/mm3 Band Neutrophils # K/mm3 Lymphocytes # (Manual) (1.2-5.4) K/mm3 Abs React Lymphs (Man) K/mm3 Monocytes # (Manual) (0.0-0.8) K/mm3 Eosinophils # (Manual) (0.0-0.4) K/mm3 Basophils # (Manual) (0.0-0.1) K/mm3 Metamyelocytes # K/mm3 Myelocytes # K/mm3 Promyelocytes # K/mm3 Blast Cells # K/mm3 WBC Morphology Hypersegmented Neuts Hyposegmented Neuts Hypogranular Neuts Smudge Cells Toxic Granulation Toxic Vacuolation Dohle Bodies Pelger-Huet Anomaly Merlene Rods Platelet Estimate Clumped Platelets Plt Clumps, EDTA Large Platelets Giant Platelets Platelet Satelliting Plt Morphology Comment RBC Morphology Dimorphic RBCs Polychromasia Hypochromasia Poikilocytosis Anisocytosis Microcytosis Macrocytosis Spherocytes Pappenheimer Bodies Sickle Cells Target Cells Tear Drop Cells Ovalocytes Helmet Cells Singer-[place] Bodies Lamont Rings Victorino Cells Bite Cells Crenated Cell Elliptocytes Acanthocytes (Spur) Rouleaux Hemoglobin C Crystals Schistocytes Malaria parasites Gopi Bodies Hem Pathologist Commnt PT (12.2-14.9) Sec. INR (0.87-1.13) APTT (24.2-36.6) Sec. VBG pH (7.320-7.420) Sodium (137-145) mmol/L Potassium (3.6-5.0) mmol/L Chloride (98-107) mmol/L Carbon Dioxide (22-30) mmol/L Anion Gap mmol/L BUN (9-20) mg/dL Creatinine (0.8-1.5) mg/dL Estimated GFR ml/min BUN/Creatinine Ratio % Glucose (75-100) mg/dL POC Glucose (70-105) Osmolality Mosm/kg Lactic Acid 1.10 (0.7-2.0) mmol/L Calcium (8.4-10.2) mg/dL Magnesium (1.7-2.3) mg/dL Total Bilirubin (0.1-1.2) mg/dL AST (5-40) units/L ALT (7-56) units/L Alkaline Phosphatase (35-129) units/L Ammonia (25-60) umol/L Total Creatine Kinase (55-170) units/L CK-MB (CK-2) (0.0-4.0) ng/mL CK-MB (CK-2) Rel Index (0-4) Troponin T 0.058 H (0.00-0.029) ng/mL Total Protein (6.3-8.2) g/dL Albumin (3.9-5) g/dL Albumin/Globulin Ratio % Triglycerides 64 (2-149) mg/dL Cholesterol 140 (50-199) mg/dL LDL Cholesterol Direct 64 (50-130) mg/dL HDL Cholesterol 64 H (40-59) mg/dL Cholesterol/HDL Ratio 2.18 % Lipase 208 H (13-60) units/L Urine Color (Yellow) Urine Turbidity (Clear) Urine pH (5.0-7.0) Ur Specific Anna (1.003-1.030) Urine Protein (Negative) mg/dL Urine Glucose (UA) (Negative) mg/dL Urine Ketones (Negative) mg/dL Urine Blood (Negative) Urine Nitrite (Negative) Urine Bilirubin (Negative) Urine Urobilinogen (<2.0) mg/dL Ur Leukocyte Esterase (Negative) Urine WBC (Auto) (0.0-6.0) /HPF Urine RBC (Auto) (0.0-6.0) /HPF U Epithel Cells (Auto) (0-13.0) /HPF Urine Bacteria (Auto) (Negative) /HPF Urine Mucus /HPF Salicylates (2.8-20.0) mg/dL Urine Opiates Screen Urine Methadone Screen Acetaminophen (10.0-30.0) ug/mL Ur Barbiturates Screen Ur Phencyclidine Scrn Ur Amphetamines Screen Phenobarbital (15.0-40.0) mg/L U Benzodiazepines Scrn Urine Cocaine Screen U Marijuana (THC) Screen Drugs of Abuse Note Plasma/Serum Alcohol (0-0.07) gm% Hepatitis A IgM Ab (NonReactive) Hep Bs Antigen (Negative) Hep B Core IgM Ab (NonReactive) Hepatitis C Antibody (NonReactive) - EKG Data -: EKG Interpreted by Me (early R-wave transistion) EKG shows normal: sinus rhythm, axis (28), QRS complexes (101), ST-T waves (no ST elevation PR or T inversion) Rate: tachycardia (102) - Radiology Data Radiology results: report reviewed read by radiologist cxr: naf CT head: No acute processes. Positive motion artifact. Maxillary sinus mucous retention cyst versus polyp on the right CT cervical spine: Degenerative peripheral stenosis left worse than the right C5 /7and C6/C7 CT abdomen and pelvis with IV contrast: Bilateral lower lobe consolidation subsegmental atelectasis and/or infiltrate. Diffuse fatty infiltration of the liver. Left adrenal adenoma. Nonobstructive bilateral renal calculi. Subtle bilateral renal cysts. 3.2 cm in AP diameter infrarenal abdominal aortic aneurysm. top normal size mildly enlarged prostate. Mild degenerative left is L5/S1 neural foraminal stenosis. Soft tissue swelling underlying the midline lumbar subcutaneous fat posterior as well as overlying the left buttocks and left hip. Splenectomy - Medical Decision Making Patient altered and requires admission Possible sepsis with leukocytosis and infiltrates identified on chest x-ray. Patient covered with broad-spectrum antibiotics vancomycin and Zosyn UA has mild increased wbc's. Blood cultures and urine cultures pending Patient also has elevated LFTs with hepatitis panel pending and elevated ammonia. Possible alcohol abuse is suspected. Banana bag also ordered Awaiting UDS and toxicology screen at disposition at 11:47 AM Recurrent hypoglycemia. Multiple amps of D50 provided. D5 in as ordered Elevated CK IV fluids initiated Mild elevated troponin. Repeat will be treated. No STEMI at this time Patient has multiple episodes of diarrhea while in the ED UDS + for benzos, opiates, cocaine,and amphetamine. Positive polysubstance abuse. Cocaine/amphetamine likely the cause of elevated CK - Differential Diagnosis drug overdose, ICH, encephalopathy Critical Care Time: No Critical care attestation.: If time is entered above; I have spent that time in minutes in the direct care of this critically ill patient, excluding procedure time. ED Disposition Clinical Impression: Altered mental state, Elevated CK, Serum ammonia increased, LFT elevation, Leukocytosis, Pulmonary infiltrate, Acute diarrhea, Hypoglycemia, Elevated troponin, Elevated lactic acid level, Polysubstance abuse, Urine WBC increased, Cellulitis of left buttock Disposition: [id number] OP ADMIT IP TO THIS HOSP Is pt being admited?: Yes Condition: Stable Referrals: PRIMARY CARE, [Primary Care Provider] - 3-5 Days Time of Disposition: 11:49 (Dr Adams/hosp)
[2017-04-28] MEDS ORDERED: VANCOMYCIN/NS 1 GM/250 ML 1 GM/250 ML BAG IV ONE (10:00)
--- NOTE | 2017-04-28 10:24 | Cat Scan Report ---
FINAL REPORT PROCEDURE: CT HEAD/BRAIN WO CON TECHNIQUE: Computerized tomography of the head was performed without contrast material. HISTORY: ams, unequal pupil R> L COMPARISON: None FINDINGS: The study is partially motion compromised. There is no gross intra or extra-axial hemorrhage. There is no CT evident acute infarction. There no mass effect or hydrocephalus. There is no gross mass lesion or leptomeningeal abnormality given limitation of lack of IV contrast. 1.3 x 1.3 centimeter inferior right maxillary sinus mucous retention cyst versus polyp is seen. The skull base and calvarium are intact. IMPRESSION: Partially motion compromised exam without evident acute intracranial process. No hemorrhage. If desired, subtle acute bland ischemia may be most sensitively excluded with MRI with diffusion. 1.3 centimeter inferior right maxillary sinus mucous retention cyst versus polyp.
--- NOTE | 2017-04-28 10:37 | Cat Scan Report ---
FINAL REPORT PROCEDURE: CT CERVICAL SPINE WO CON TECHNIQUE: Computerized tomography of the cervical spine was performed without contrast material. HISTORY: ams, unkown if fall COMPARISON: None FINDINGS: There is no CT evident paraspinal hematoma. Straightening and mild reversal of the cervical lordosis is present. There is no CT evident vertebral body or posterior element fracture. There is no subluxation. There is no evident disc herniation. Degenerative left worse than right C5/C6 and C6/C7 foraminal stenosis is present. IMPRESSION: Straightening and mild reversal of the cervical lordosis which may be positional or related to spasm. Degenerative peripheral stenosis left worse than right at C5/C6 and C6/C7. If desired subtle disc protrusion as well as ligamentous injury may be excluded with MRI.
--- NOTE | 2017-04-28 10:52 | Cat Scan Report ---
FINAL REPORT PROCEDURE: CT ABDOMEN PELVIS W CON TECHNIQUE: Computerized axial tomography of the abdomen and pelvis was performed after the IV injection of iodinated nonionic contrast. HISTORY: left abd pain, elevated lft's COMPARISON: None FINDINGS: Visualized lower thorax: Consolidation of the lower lobes posterior inferiorly is seen.. Liver: There is diffuse fatty infiltration. Spleen: Splenectomy. Gallbladder and biliary system: Cholecystectomy. No biliary ductal obstruction. Pancreas: Normal. Adrenals: 2.2 x 1.1 centimeter lateral limb left adrenal adenoma. Normal right adrenal gland. Kidneys: Subtle bilateral renal cortical cysts. 3.5 millimeter calculus of the midpole of the right kidney. A couple of tiny left renal calculi.. GI tract: Limited in evaluation without oral contrast. No gross focal bowel abnormality. Normal appendix. Lymph nodes and mesentery: Nonpathologic lymph nodes noted in the abdomen and pelvis. No mesenteric mass. Vasculature: Infrarenal abdominal aortic aneurysm 3.2 centimeters in AP diameter.. Bladder: Normal. Reproductive organs: Top-normal to mildly enlarged prostate. Peritoneum: No free fluid. Musculoskeletal structures: Degenerative changes of the spine. This is worst at L5/S1. Inferior left L5/S1 foraminal stenosis is present. Other: Soft tissue swelling overlies the midline lower lumbar subcutaneous fat posteriorly as well as the left buttock and left hip. IMPRESSION: Bilateral lower lobe consolidation subsegmental atelectasis and or infiltrate. Correlate clinically. Diffuse fatty infiltration of the liver. Left adrenal adenoma. Nonobstructive bilateral renal calculi. Subtle bilateral renal cysts. 3.2 centimeter in AP diameter infrarenal abdominal aortic aneurysm. Top-normal in size to mildly enlarged prostate. Correlate with PSA. Mild degenerative left L5/S1 neural foraminal stenosis. Soft tissue swelling overlying the midline lower lumbar subcutaneous fat posteriorly as well as overlying the left buttock and left hip. Correlate for possible cellulitis/hematoma. Splenectomy.
[2017-04-28 11:18] LABS: Band Neutrophils # (Manual) 0.3 K/mm3; Basophils % (Manual) 0 % (0.0-1.8); Eosinophils % (Manual) 0 % (0.0-4.3); Total Cells Counted 100
[2017-04-28 11:19] LABS: RBC Morphology Normal
[2017-04-28 12:13] LABS: Cannabinoid Screen,Urine PRESUMPTIVE NEGATIVE; Methadone Screen,Urine PRESUMPTIVE NEGATIVE
[2017-04-28 12:28] LABS: Amphetamine Screen,Urine PRESUMPTIVE POSITIVE; Benzodiazepines Screen,Urine PRESUMPTIVE POSITIVE; Cocaine Screen,Urine PRESUMPTIVE POSITIVE; Opiate Screen,Urine PRESUMPTIVE POSITIVE
[2017-04-28 13:12] LABS: Chol/HDL Ratio 2.18 %
[2017-04-28 14:01] LABS: Creatine Kinase MB 56.2 ng/mL (0.0-4.0)
--- NOTE | 2017-04-28 14:36 | History and Physical Report ---
History of Present Illness Date of examination: 04/28/17 Date of admission: 04/28/17 Chief complaint: CC :Unresponsive -time of unresponsiveness not known. History of present illness: History of Present Illness 52-year-old male with unknown past medical history presents to the hospital [place] unresponsive with pinpoint pupils. GCS 3. Patient received Narcan 2 mg IV and became responsive to sternal rub with improved Orin score of 12. His labs showed that the patient's glucose was in the 25s and gave him D50w. Patient is lethargic with slurred speech. Complains of left-sided abdominal pain. He denies drug use. He denies daily alcohol use. He also has dried blood in his mouth/tongue without signs of active bleeding or laceration. No other history of present illness is available at this time. PMH Not known PSH not known Social hx Does opiates Fam Hx Not known Review of systems: Stated complaint: OVERDOSE Other details as noted in HPI Unobtainable due to pts medical conditions (Limited due to alteration in mental status see HPI. Medications and Allergies Allergies Allergy/AdvReac Type Severity Reaction Status Date / Time No Known Allergies Allergy Verified 04/29/17 02:16 Home Medications Medication Instructions Recorded Confirmed Last Taken Type No Known Home Medications [No 04/28/17 04/28/17 Unknown History Reported Home Medications] Active Meds: Active Medications Dextrose/Sodium Chloride (D5ns) 1,000 mls @ 200 mls/hr IV DIRECT PRADIP Exam - Physical Exam Narrative exam: Lying unresponsive - Constitutional Vitals: Temp Pulse Resp BP Pulse Ox 98.2 F 96 H 11 L 108/74 96 04/28/17 07:30 04/28/17 13:52 04/28/17 13:52 04/28/17 13:52 04/28/17 13:46 General appearance: Present: no acute distress, well-nourished - EENT Eyes: Present: miosis ENT: clear oral mucosa, poor dentition - Neck Neck: Present: supple, normal ROM - Respiratory Respiratory effort: normal Respiratory: bilateral: CTA - Cardiovascular Heart rate: 80 Rhythm: regular Heart Sounds: Present: S1 & S2. Absent: rub, click - Extremities Extremities: no ischemia, pulses intact, pulses symmetrical, No edema Peripheral Pulses: within normal limits - Abdominal General gastrointestinal: Present: soft, non-tender, non-distended, normal bowel sounds Male genitourinary: Present: normal - Rectal Rectal Exam: deferred - Integumentary Integumentary: Present: clear, warm, dry - Musculoskeletal Musculoskeletal: other (Unresponsive) - Psychiatric Psychiatric: depressed - Neurologic Neurologic: moves all extremities, other (Unresponsive) - Allied Health Allied health notes reviewed: nursing, case management Results - Labs CBC & Chem 7: 04/28/17 07:43 04/28/17 07:43 Labs: Laboratory Last Values WBC 34.6 K/mm3 (4.5-11.0) H 04/28/17 07:43 RBC 5.00 M/mm3 (3.65-5.03) 04/28/17 07:43 Hgb 16.5 gm/dl (11.8-15.2) H 04/28/17 07:43 Hct 48.0 % (35.5-45.6) H 04/28/17 07:43 MCV 96 fl (84-94) H 04/28/17 07:43 MCH 33 pg (28-32) H 04/28/17 07:43 MCHC 34 % (32-34) 04/28/17 07:43 RDW 16.0 % (13.2-15.2) H 04/28/17 07:43 Plt Count 287 K/mm3 (140-440) 04/28/17 07:43 Add Manual Diff Complete 04/28/17 07:43 Total Counted 100 04/28/17 07:43 Seg Neuts % (Manual) 90.0 % (40.0-70.0) H 04/28/17 07:43 Band Neutrophils % 1.0 % 04/28/17 07:43 Lymphocytes % (Manual) 2.0 % (13.4-35.0) L 04/28/17 07:43 Reactive Lymphs % (Man) 0 % 04/28/17 07:43 Monocytes % (Manual) 7.0 % (0.0-7.3) 04/28/17 07:43 Eosinophils % (Manual) 0 % (0.0-4.3) 04/28/17 07:43 Basophils % (Manual) 0 % (0.0-1.8) 04/28/17 07:43 Metamyelocytes % 0 % 04/28/17 07:43 Myelocytes % 0 % 04/28/17 07:43 Promyelocytes % 0 % 04/28/17 07:43 Blast Cells % 0 % 04/28/17 07:43 Nucleated RBC % Not Reportable 04/28/17 07:43 Seg Neutrophils # Man 31.1 K/mm3 (1.8-7.7) H 04/28/17 07:43 Band Neutrophils # 0.3 K/mm3 04/28/17 07:43 Lymphocytes # (Manual) 0.7 K/mm3 (1.2-5.4) L 04/28/17 07:43 Abs React Lymphs (Man) 0.0 K/mm3 04/28/17 07:43 Monocytes # (Manual) 2.4 K/mm3 (0.0-0.8) H 04/28/17 07:43 Eosinophils # (Manual) 0.0 K/mm3 (0.0-0.4) 04/28/17 07:43 Basophils # (Manual) 0.0 K/mm3 (0.0-0.1) 04/28/17 07:43 Metamyelocytes # 0.0 K/mm3 04/28/17 07:43 Myelocytes # 0.0 K/mm3 04/28/17 07:43 Promyelocytes # 0.0 K/mm3 04/28/17 07:43 Blast Cells # 0.0 K/mm3 04/28/17 07:43 WBC Morphology Not Reportable 04/28/17 07:43 Hypersegmented Neuts Not Reportable 04/28/17 07:43 Hyposegmented Neuts Not Reportable 04/28/17 07:43 Hypogranular Neuts Not Reportable 04/28/17 07:43 Smudge Cells Not Reportable 04/28/17 07:43 Toxic Granulation Not Reportable 04/28/17 07:43 Toxic Vacuolation Not Reportable 04/28/17 07:43 Dohle Bodies Not Reportable 04/28/17 07:43 Pelger-Huet Anomaly Not Reportable 04/28/17 07:43 Merlene Rods Not Reportable 04/28/17 07:43 Platelet Estimate Not Reportable 04/28/17 07:43 Clumped Platelets Not Reportable 04/28/17 07:43 Plt Clumps, EDTA Not Reportable 04/28/17 07:43 Large Platelets Not Reportable 04/28/17 07:43 Giant Platelets Not Reportable 04/28/17 07:43 Platelet Satelliting Not Reportable 04/28/17 07:43 Plt Morphology Comment Not Reportable 04/28/17 07:43 RBC Morphology Normal 04/28/17 07:43 Dimorphic RBCs Not Reportable 04/28/17 07:43 Polychromasia Not Reportable 04/28/17 07:43 Hypochromasia Not Reportable 04/28/17 07:43 Poikilocytosis Not Reportable 04/28/17 07:43 Anisocytosis Not Reportable 04/28/17 07:43 Microcytosis Not Reportable 04/28/17 07:43 Macrocytosis Not Reportable 04/28/17 07:43 Spherocytes Not Reportable 04/28/17 07:43 Pappenheimer Bodies Not Reportable 04/28/17 07:43 Sickle Cells Not Reportable 04/28/17 07:43 Target Cells Not Reportable 04/28/17 07:43 Tear Drop Cells Not Reportable 04/28/17 07:43 Ovalocytes Not Reportable 04/28/17 07:43 Helmet Cells Not Reportable 04/28/17 07:43 Singer-[place]pti Bodies Not Reportable 04/28/17 07:43 Artemus Rings Not Reportable 04/28/17 07:43 Victorino Cells Not Reportable 04/28/17 07:43 Bite Cells Not Reportable 04/28/17 07:43 Crenated Cell Not Reportable 04/28/17 07:43 Elliptocytes Not Reportable 04/28/17 07:43 Acanthocytes (Spur) Not Reportable 04/28/17 07:43 Rouleaux Not Reportable 04/28/17 07:43 Hemoglobin C Crystals Not Reportable 04/28/17 07:43 Schistocytes Not Reportable 04/28/17 07:43 Malaria parasites Not Reportable 04/28/17 07:43 Gopi Bodies Not Reportable 04/28/17 07:43 Hem Pathologist Commnt No 04/28/17 07:43 PT 14.0 Sec. (12.2-14.9) 04/28/17 07:43 INR 1.03 (0.87-1.13) 04/28/17 07:43 APTT 29.2 Sec. (24.2-36.6) 04/28/17 07:43 VBG pH 7.275 (7.320-7.420) L 04/28/17 08:57 Sodium 144 mmol/L (137-145) 04/28/17 07:43 Potassium 3.5 mmol/L (3.6-5.0) L 04/28/17 07:43 Chloride 105.2 mmol/L (98-107) 04/28/17 07:43 Carbon Dioxide 21 mmol/L (22-30) L 04/28/17 07:43 Anion Gap 21 mmol/L 04/28/17 07:43 BUN 23 mg/dL (9-20) H 04/28/17 07:43 Creatinine 1.4 mg/dL (0.8-1.5) 04/28/17 07:43 Estimated GFR 54 ml/min 04/28/17 07:43 BUN/Creatinine Ratio 16 % 04/28/17 07:43 Glucose 25 mg/dL (75-100) L* 04/28/17 07:43 POC Glucose 79 (70-105) 04/28/17 12:47 Osmolality 290 Mosm/kg 04/28/17 07:43 Lactic Acid 2.90 mmol/L (0.7-2.0) H* 04/28/17 08:57 Calcium 7.9 mg/dL (8.4-10.2) L 04/28/17 07:43 Magnesium 2.30 mg/dL (1.7-2.3) 04/28/17 08:57 Total Bilirubin 1.90 mg/dL (0.1-1.2) H 04/28/17 07:43 AST 342 units/L (5-40) H 04/28/17 07:43 ALT 139 units/L (7-56) H 04/28/17 07:43 Alkaline Phosphatase 147 units/L (35-129) H 04/28/17 07:43 Ammonia 72.0 umol/L (25-60) H 04/28/17 08:57 Total Creatine Kinase 5552 units/L (55-170) H 04/28/17 13:23 CK-MB (CK-2) 56.2 ng/mL (0.0-4.0) H 04/28/17 13:23 CK-MB (CK-2) Rel Index 1.0 (0-4) 04/28/17 13:23 Troponin T 0.058 ng/mL (0.00-0.029) H 04/28/17 Unknown Total Protein 6.8 g/dL (6.3-8.2) 04/28/17 07:43 Albumin 3.7 g/dL (3.9-5) L 04/28/17 07:43 Albumin/Globulin Ratio 1.2 % 04/28/17 07:43 Triglycerides 64 mg/dL (2-149) 04/28/17 Unknown Cholesterol 140 mg/dL (50-199) 04/28/17 Unknown LDL Cholesterol Direct 64 mg/dL (50-130) 04/28/17 Unknown HDL Cholesterol 64 mg/dL (40-59) H 04/28/17 Unknown Cholesterol/HDL Ratio 2.18 % 04/28/17 Unknown Lipase 208 units/L (13-60) H 04/28/17 Unknown Urine Color Diamante (Yellow) 04/28/17 09:09 Urine Turbidity Slightly-cloudy (Clear) 04/28/17 09:09 Urine pH 5.0 (5.0-7.0) 04/28/17 09:09 Ur Specific [place] 1.023 (1.003-1.030) 04/28/17 09:09 Urine Protein 100 mg/dl mg/dL (Negative) 04/28/17 09:09 Urine Glucose (UA) Neg mg/dL (Negative) 04/28/17 09:09 Urine Ketones Neg mg/dL (Negative) 04/28/17 09:09 Urine Blood Lg (Negative) 04/28/17 09:09 Urine Nitrite Neg (Negative) 04/28/17 09:09 Urine Bilirubin Neg (Negative) 04/28/17 09:09 Urine Urobilinogen 4.0 mg/dL (<2.0) 04/28/17 09:09 Ur Leukocyte Esterase Neg (Negative) 04/28/17 09:09 Urine WBC (Auto) 15.0 /HPF (0.0-6.0) H 04/28/17 09:09 Urine RBC (Auto) 11.0 /HPF (0.0-6.0) 04/28/17 09:09 U Epithel Cells (Auto) 1.0 /HPF (0-13.0) 04/28/17 09:09 Urine Bacteria (Auto) 1+ /HPF (Negative) 04/28/17 09:09 Urine Mucus Few /HPF 04/28/17 09:09 Salicylates < 0.3 mg/dL (2.8-20.0) L 04/28/17 09:09 Urine Opiates Screen Presumptive positive 04/28/17 09:09 Urine Methadone Screen Presumptive negative 04/28/17 09:09 Acetaminophen < 15.0 ug/mL (10.0-30.0) 04/28/17 09:09 Ur Barbiturates Screen Presumptive negative 04/28/17 09:09 Ur Phencyclidine Scrn Presumptive negative 04/28/17 09:09 Ur Amphetamines Screen Presumptive positive 04/28/17 09:09 Phenobarbital < 2.4 mg/L (15.0-40.0) L 04/28/17 07:43 U Benzodiazepines Scrn Presumptive positive 04/28/17 09:09 Urine Cocaine Screen Presumptive positive 04/28/17 09:09 U Marijuana (THC) Screen Presumptive negative 04/28/17 09:09 Drugs of Abuse Note Disclamer 04/28/17 09:09 Plasma/Serum Alcohol < 0.01 gm% (0-0.07) 04/28/17 09:09 - Imaging and Cardiology EKG: report reviewed (sinus tach 102/min Abnormal r wave progression) Assessment and Plan Assessment and plan: Critical care statement: The high probability of a clinically significant, sudden or life threatening deterioration of the [Pulmonary, cadiac, renal] system(s) required my full and direct attention, intervention and personal management. The aggregate critical care time was [45] minutes. This time is in addition to time spent performing reported procedures but includes the following: [x] Data Review and interpretation [x] Patient assessment and monitoring of vital signs [x] Documentation [x] Medication orders and management Advance Directives: Yes (Full code) VTE prophylaxis?: Chemical Plan of care discussed with patient/family: Yes - Patient Problems (1) Sepsis Current Visit: Yes Status: Acute Qualifiers: Sepsis type: sepsis due to unspecified organism Qualified Code(s): A41.9 - Sepsis, unspecified organism Plan to address problem: In view of High lactic acid and Leukocytosis.IV abx for now And ID consult requested (2) Acute encephalopathy Current Visit: Yes Status: Acute Plan to address problem: Multifactorial -sepsis/Hypoglycemia/Polysubstance abuse (3) Hypoglycemia Current Visit: Yes Status: Acute Plan to address problem: D50 w given (4) Polysubstance abuse Current Visit: Yes Status: Chronic Plan to address problem: Patient positive for Benzo /Cocaine and amphetamines CIWA protocol initiated (5) Dehydration Current Visit: Yes Status: Acute Plan to address problem: IV fluids for now (6) Transaminitis Current Visit: Yes Status: Acute Plan to address problem: Sec to ETOH-Presumed.Hepatitis profile negative (7) Elevated troponin Current Visit: Yes Status: Acute Plan to address problem: Etio unclear Card consult (8) Rhabdomyolysis Current Visit: Yes Status: Acute Qualifiers: Rhabdomyolysis type: non-traumatic Qualified Code(s): M62.82 - Rhabdomyolysis Plan to address problem: Statins/Muscle injury sec to unresponsiveness and lying unconscious for unknown period IV fluids (9) DVT prophylaxis Current Visit: Yes Status: Acute Plan to address problem: on Lovenox
[2017-04-28 15:04] LABS: Hepatitis A Antibody IgM Non-Reactive (NonReactive); Hepatitis B Core IgM Non-Reactive (NonReactive); Hepatitis B Surface Antigen Non-Reactive (Negative); Hepatitis C Virus Antibody Non-Reactive (NonReactive)
[2017-04-28] MEDS: D5NS 1,000 ML IV SCH (23:29)
[2017-04-29] MEDS ORDERED: ATIVAN IV PRN ×3 (07:26)
[2017-04-29] MEDS ORDERED: HALDOL IV PRN (07:26)
[2017-04-29] MEDS ORDERED: VANCOMYCIN PHARMACY TO DOSE IV SCH (08:00)
[2017-04-29 08:36] LABS: Magnesium 1.9 mg/dL (1.7-2.3)
[2017-04-29] MEDS: D5NS 1,000 ML IV SCH ×2 (09:21→23:39)
[2017-04-29] MEDS: ZOSYN/NS 4.5GM/100ML 4.5 GM/100 ML VIAL IV SCH ×3 (09:21→22:06)
--- NOTE | 2017-04-29 10:07 | Consultation ---
History of Present Illness Consult date: 04/29/17 Requesting physician: MONTY HARRISON Reason for consult: other (Sepsis, encephalopathy for critical care management) History of present illness: 52-year-old male with unknown past medical history presents to the hospital [place] unresponsive with pinpoint pupils. GCS 3. Patient received Narcan 2 mg IV and became responsive to sternal rub with improved Kane score of 12. His labs showed that the patient's glucose was in the 25s and gave him D50w. Patient is lethargic with slurred speech. Complains of left-sided abdominal pain. He denies drug use. He denies daily alcohol use. He also has dried blood in his mouth/tongue without signs of active bleeding or laceration. No other history of present illness is available at this time. Upon arrival to emergency room, initial temperature was 98.2, it went to 100.1. Heart rate 115. Respiration 14. O2 sat 92%. Blood pressure 144/87. Initial white count 34.6. Hemoglobin 16.5. Platelets 287. Creatinine 1.4. CK 2.9. AST 142. ALT 139. CK 7440. Urinalysis was negative. UDS was positive for opioids, amphetamine, benzodiazepines and cocaine. CT of the head was unremarkable. Chest x-ray was negative. CT of the abdomen showed bilateral lower lobe consolidation. Also showed diffuse fatty infiltrate of the lever and non obstructing bilateral renal calculi. 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 There was also soft tissue swelling at the medial lower lumbar subcutaneous area and left buttocks and left hip. Patient is status post a splenectomy. We have been consulted for critical care management PMH Not known PSH not known Social hx Does opiates Fam Hx Not known Medications and Allergies Allergies Allergy/AdvReac Type Severity Reaction Status Date / Time No Known Allergies Allergy Verified 04/29/17 02:16 Home Medications Medication Instructions Recorded Confirmed Last Taken Type Nicotine [Habitrol] 21 mg TD Q24H #14 patch 05/02/17 Unknown Rx Potassium Chloride [K-Dur] 20 meq PO QDAY #30 tablet 05/02/17 Unknown Rx Active Meds: Active Medications Haloperidol Lactate (Haldol) 5 mg IV Q1H PRN PRN Reason: Unrespon. to mult. doses BZD's Last Admin: 04/29/17 09:21 Dose: 5 mg Dextrose/Sodium Chloride (D5ns) 1,000 mls @ 125 mls/hr IV DIRECT [facility] Last Admin: 04/29/17 09:21 Dose: 200 mls/hr Piperacillin Sod/Tazobactam Sod (Zosyn/Ns 4.5gm/100ml) 4.5 gm in 100 mls @ 200 mls/hr IV Q8HR PRADIP PRN Reason: Protocol Last Admin: 04/29/17 09:21 Dose: 200 mls/hr Vancomycin HCl (Vancomycin/Ns 1 Gm/250 Ml) 1 gm in 250 mls @ 166.667 mls/hr IV Q12H [facility] Influenza Virus Vaccine Quadrival (Fluarix Quad [id number](36 Mos+) 0.5 ml IM .ONCE ONE Stop: 04/29/17 12:01 Lorazepam (Ativan) 2 mg IV Q1H PRN PRN Reason: CIWA-Ar 8-15 Lorazepam (Ativan) 4 mg IV Q1H PRN PRN Reason: CIWA-Ar 16-25 Lorazepam (Ativan) 4 mg IV Q15MIN PRN PRN Reason: CIWA-Ar >25 Phenobarbital (Phenobarbital) 130 mg IV Q15M PRN PRN Reason: DT's refractory to BZD's Vancomycin HCl (Vancomycin Pharmacy To Dose) 1 each IV PKCONSULT [facility] PRN Reason: Protocol Physical Examination Vital signs: Vital Signs Pulse Resp BP Pulse Ox 115 H 14 144/87 92 04/28/17 07:11 04/28/17 07:11 04/28/17 07:11 04/28/17 07:11 GEN: Unkempt, BMI 25 NAD, somnolent and confused but easily aroused HEENT: NCAT, EOMI, PERRL, OP Clear NECK: supple, no adenopathy, no thyromegaly, no JVD CVS/HEART: RRR, NORMAL S1S2, NO JVD, pulses present bilaterally CHEST/LUNGS: CTA B, Symmetrical chest expansion, good air entry bilaterally GI/Abdomen: soft, NTND, good bowel sounds, no guarding or rebound /Bladder: no suprapubic tenderness, no CVA or paraspinal tenderness EXT/Skin: no c/c/e, no obvious rash MSK: FROM x 4 Neuro: CN 2-12 grossly intact, no focal deficits Psych: calm Results - Laboratory Findings CBC and BMP: 05/02/17 05:48 05/02/17 05:48 PT/INR, D-dimer PT 14.0 Sec. (12.2-14.9) 04/28/17 07:43 INR 1.03 (0.87-1.13) 04/28/17 07:43 Abnormal lab findings: Abnormal Labs 04/28/17 04/28/17 04/28/17 07:43 07:43 07:43 WBC 34.6 H Hgb 16.5 H Hct 48.0 H MCV 96 H MCH 33 H RDW 16.0 H Seg Neuts % (Manual) 90.0 H Lymphocytes % (Manual) 2.0 L Seg Neutrophils # Man 31.1 H Lymphocytes # (Manual) 0.7 L Monocytes # (Manual) 2.4 H VBG pH Potassium 3.5 L Carbon Dioxide 21 L BUN 23 H Glucose 25 L* POC Glucose Lactic Acid Calcium 7.9 L Phosphorus Total Bilirubin 1.90 H AST 342 H ALT 139 H Alkaline Phosphatase 147 H Ammonia Total Creatine Kinase CK-MB (CK-2) Troponin T Albumin 3.7 L HDL Cholesterol Lipase Urine WBC (Auto) Salicylates Phenobarbital < 2.4 L 04/28/17 04/28/17 04/28/17 07:47 08:36 08:57 WBC Hgb Hct MCV MCH RDW Seg Neuts % (Manual) Lymphocytes % (Manual) Seg Neutrophils # Man Lymphocytes # (Manual) Monocytes # (Manual) VBG pH Potassium Carbon Dioxide BUN Glucose POC Glucose < 40 L Lactic Acid Calcium Phosphorus Total Bilirubin AST ALT Alkaline Phosphatase Ammonia 72.0 H Total Creatine Kinase 7440 H CK-MB (CK-2) Troponin T Albumin HDL Cholesterol Lipase Urine WBC (Auto) Salicylates Phenobarbital 04/28/17 04/28/17 04/28/17 08:57 08:57 09:09 WBC Hgb Hct MCV MCH RDW Seg Neuts % (Manual) Lymphocytes % (Manual) Seg Neutrophils # Man Lymphocytes # (Manual) Monocytes # (Manual) VBG pH 7.275 L Potassium Carbon Dioxide BUN Glucose POC Glucose Lactic Acid 2.90 H* Calcium Phosphorus Total Bilirubin AST ALT Alkaline Phosphatase Ammonia Total Creatine Kinase CK-MB (CK-2) Troponin T Albumin HDL Cholesterol Lipase Urine WBC (Auto) 15.0 H Salicylates Phenobarbital 1204/28/17 04/28/17 09:09 09:20 13:23 WBC Hgb Hct MCV MCH RDW Seg Neuts % (Manual) Lymphocytes % (Manual) Seg Neutrophils # Man Lymphocytes # (Manual) Monocytes # (Manual) VBG pH Potassium Carbon Dioxide BUN Glucose POC Glucose 51 L Lactic Acid Calcium Phosphorus Total Bilirubin AST ALT Alkaline Phosphatase Ammonia Total Creatine Kinase 5552 H CK-MB (CK-2) 56.2 H Troponin T 0.059 H Albumin HDL Cholesterol Lipase Urine WBC (Auto) Salicylates < 0.3 L Phenobarbital 04/28/17 04/28/17 04/29/17 Unknown Unknown 08:09 WBC Hgb Hct MCV MCH RDW Seg Neuts % (Manual) Lymphocytes % (Manual) Seg Neutrophils # Man Lymphocytes # (Manual) Monocytes # (Manual) VBG pH Potassium Carbon Dioxide BUN Glucose POC Glucose Lactic Acid Calcium Phosphorus 1.50 L Total Bilirubin AST ALT Alkaline Phosphatase Ammonia Total Creatine Kinase CK-MB (CK-2) Troponin T 0.058 H Albumin HDL Cholesterol 64 H Lipase 208 H Urine WBC (Auto) Salicylates Phenobarbital 04/29/17 08:09 WBC Hgb Hct MCV MCH RDW Seg Neuts % (Manual) Lymphocytes % (Manual) Seg Neutrophils # Man Lymphocytes # (Manual) Monocytes # (Manual) VBG pH Potassium Carbon Dioxide BUN Glucose POC Glucose Lactic Acid Calcium Phosphorus Total Bilirubin AST ALT Alkaline Phosphatase Ammonia < 10.0 L Total Creatine Kinase CK-MB (CK-2) Troponin T Albumin HDL Cholesterol Lipase Urine WBC (Auto) Salicylates Phenobarbital Assessment and Plan Sepsis Syndrome Acute Encephalopathy, toxic, metabolic Polysubstance Abuse MANUELA Rhabdomyolysis Possible element of Shock Liver with hypoglycemia Bilateral Pneumonia -Admit ICU - empiric antibiotics, follow cultures then de-escalate or adjust antibiotic regimen -Aspiration precautions -Keep NPO -Place nasojejunal tube for medications and initiation of enteric feedings -monitor accuchecks closely - supplemental oxygen to keep sats > 90% - prn bronchodilators -CIWA protocol and monitor for alcohol/drug withdrawal - GI & VTE prophylaxis - Hydration -Avoid nephrotoxics and adjust antibiotics for GFR and CrCl -Closely monitor hemodynamics -Will need substance abuse counselling prior to discharge
[2017-04-29] MEDS ORDERED: Fluarix Quad 2017-2018(36 MOS+ IM ONE (12:00)
[2017-04-29] MEDS: VANCOMYCIN/NS 1 GM/250 ML 1 GM/250 ML BAG IV SCH ×2 (12:18→23:39)
--- NOTE | 2017-04-29 12:43 | Consultation ---
History of Present Illness - Reason for Consult Consult date: 04/29/17 sepsis Requesting physician: MONTY HARRISON - History of Present Illness 52-year-old male with unknown past medical history admitted on 04/28/17 due to [place]. Per EMS, Initial GCS 3. Patient received Narcan 2 mg IV and became responsive to sternal rub with improved [place] score of 12. His labs showed that the patient's glucose was in the 25s and gave him D50w. Patient is lethargic with slurred speech. Upon awaking he complains of left-sided abdominal pain. He also has dried blood in his mouth/tongue without signs of active bleeding or laceration. No other history of present illness is available at this time. Upon arrival to emergency room, initial temperature was 98.2, it went to 100.1. Heart rate 115. Respiration 14. O2 sat 92%. Blood pressure 144/87. Initial white count 34.6. Hemoglobin 16.5. Platelets 287. Creatinine 1.4. CK 2.9. AST 142. ALT 139. CK 7440. Urinalysis was negative. UDS was positive for opioids, amphetamine, benzos and cocaine. CT of the head was unremarkable. Chest x-ray was negative. CT of the abdomen showed bilateral lower lobe consolidation. Also showed diffuse fatty infiltrate of the lever and nonobstructing bilateral renal calculi. 3.2 cm AAA. There was also soft tissue swelling at the medial lower lumbar subcutaneous area and left buttocks and left hip. Patient is status post a splenectomy. Microbiology: Blood cultures: 04/28 ngtd Urine cultures: Respiratory cultures: Current Antimicrobials: Zosyn 04/29 Vancomycin 04/29 Previous Antimicrobials: Past History Past Surgical History: Other (splenectomy ) Medications and Allergies Allergies Allergy/AdvReac Type Severity Reaction Status Date / Time No Known Allergies Allergy Verified 04/29/17 02:16 Home Medications Medication Instructions Recorded Confirmed Last Taken Type No Known Home Medications [No 04/28/17 04/28/17 Unknown History Reported Home Medications] Active Meds: Active Medications Haloperidol Lactate (Haldol) 5 mg IV Q1H PRN PRN Reason: Unrespon. to mult. doses BZD's Last Admin: 04/29/17 09:21 Dose: 5 mg Dextrose/Sodium Chloride (D5ns) 1,000 mls @ 125 mls/hr IV DIRECT PRADIP Last Admin: 04/29/17 09:21 Dose: 200 mls/hr Piperacillin Sod/Tazobactam Sod (Zosyn/Ns 4.5gm/100ml) 4.5 gm in 100 mls @ 200 mls/hr IV Q8HR PRADIP PRN Reason: Protocol Last Admin: 04/29/17 09:21 Dose: 200 mls/hr Vancomycin HCl (Vancomycin/Ns 1 Gm/250 Ml) 1 gm in 250 mls @ 166.667 mls/hr IV Q12H PRADIP Last Admin: 04/29/17 12:18 Dose: 166.667 mls/hr Lorazepam (Ativan) 2 mg IV Q1H PRN PRN Reason: CIWA-Ar 8-15 Lorazepam (Ativan) 4 mg IV Q1H PRN PRN Reason: CIWA-Ar 16-25 Lorazepam (Ativan) 4 mg IV Q15MIN PRN PRN Reason: CIWA-Ar >25 Phenobarbital (Phenobarbital) 130 mg IV Q15M PRN PRN Reason: DT's refractory to BZD's Vancomycin HCl (Vancomycin Pharmacy To Dose) 1 each IV PKCONSULT PRADIP PRN Reason: Protocol Physical Examination - Physical Exam Narrative exam: General appearance: somnolent non verbal in NC O2 Eyes: anicteric sclerae, moist conjunctivae; no lid-lag; PERRLA HENT: Atraumatic; oropharynx limited Neck: Trachea midline; supple, no thyromegaly or lymphadenopathy Lungs: CTA CV: RRR Abdomen: Soft, non-tender Extremities: No peripheral edema or extremity lymphadenopathy Skin: Normal temperature, turgor and texture; no rash, ulcers or subcutaneous nodules Psych: somnolent Neuro: somnolent Lines: No CVL / PICC - Constitutional Vitals: Vital Signs Temp Pulse Resp BP Pulse Ox 99.1 F 77 14 136/99 99 04/29/17 08:00 04/29/17 11:00 04/29/17 11:00 04/29/17 11:00 04/29/17 11:00 Temperature -Last 24 Hours Temperature 99.1 F Temperature 100.1 F Temperature 100 F Temperature 98.7 F Temperature 98.5 F Results - Labs CBC & Chem 7: 04/28/17 07:43 04/28/17 07:43 Labs: Abnormal lab results 04/28/17 04/28/17 04/29/17 Range/Units 13:23 Unknown 08:09 Phosphorus 1.50 L (2.5-4.5) mg/dL Ammonia (25-60) umol/L Total Creatine Kinase 5552 H (55-170) units/L CK-MB (CK-2) 56.2 H (0.0-4.0) ng/mL Troponin T 0.059 H (0.00-0.029) ng/mL HDL Cholesterol 64 H (40-59) mg/dL 04/29/17 04/29/17 Range/Units 08:09 08:09 Phosphorus (2.5-4.5) mg/dL Ammonia < 10.0 L (25-60) umol/L Total Creatine Kinase 3089 H (55-170) units/L CK-MB (CK-2) (0.0-4.0) ng/mL Troponin T (0.00-0.029) ng/mL HDL Cholesterol (40-59) mg/dL Assessment and Plan Assessment: 1) Sepsis: Present on admission, manifested by fever, tachycardia, leukocytosis , increased lactate. Etiology unclear ? aspiration pneumonia 2) Bilateral pneumonia: seen on CT, likely aspiration 3) Encephalopathy: due to OD 4) Polysubstance abuse 5) Presumed rhabdomyolisis: from prolonged lying down on the ground 6) Elevated LFTs- from sepsis. Viral hepatitis panel neg 7) MANUELA 8) Hypoglycemia Plan: -follow-up blood cultures -obtain C-reactive protein (CRP) -continue zosyn total duration 7 days - if clinically better ok to change to clindamycin 300 mg po q8h -stop vancomycin -repeat CXR in the AM -monitor mentation I will be off until May 05, but available over the phone, please call me for questions. Thank you Dr Harrison for your consultation, will follow up with you. Lucinda Paulson MD Infectious Diseases Specialist [facility] ([facility] M [phone] O [phone]
--- NOTE | 2017-04-29 13:23 | Consultation ---
History of Present Illness Consult date: 04/29/17 Consult reason: elevated troponin History of present illness: This is a 52yr old male who was brought in after he was found unresponsive at a hotel. Initial labs most notable for a glucose of 25, white count of 34.6 and AST 342 on initial workup. Urine drug screen was positive for polysubstance abuse. CT of the head was unremarkable. Chest x-ray was negative. CT of the abdomen showed bilateral lower lobe consolidation. Diffuse fatty infiltrate of the liver and nonobstructing bilateral renal calculi. There was also a 3.2 cm AAA. Cardiology consultation was requested for elevated troponin. Cardiac isoenzymes [place] 5552 with a normal relative index of 1.0, consistent with rhabdomyolysis. A troponin was mildly elevated at 0.059. There was no report of chest pain or shortness of breath. His ECG is benign, a sinus rhythm, no acute ischemic changes. Past History Past Surgical History: Other (splenectomy ) Medications and Allergies Allergies Allergy/AdvReac Type Severity Reaction Status Date / Time No Known Allergies Allergy Verified 04/29/17 02:16 Home Medications Medication Instructions Recorded Confirmed Last Taken Type No Known Home Medications [No 04/28/17 04/28/17 Unknown History Reported Home Medications] Active Meds: Active Medications Haloperidol Lactate (Haldol) 5 mg IV Q1H PRN PRN Reason: Unrespon. to mult. doses BZD's Last Admin: 04/29/17 09:21 Dose: 5 mg Dextrose/Sodium Chloride (D5ns) 1,000 mls @ 125 mls/hr IV DIRECT PRADIP Last Admin: 04/29/17 09:21 Dose: 200 mls/hr Piperacillin Sod/Tazobactam Sod (Zosyn/Ns 4.5gm/100ml) 4.5 gm in 100 mls @ 200 mls/hr IV Q8HR PRADIP PRN Reason: Protocol Last Admin: 04/29/17 09:21 Dose: 200 mls/hr Vancomycin HCl (Vancomycin/Ns 1 Gm/250 Ml) 1 gm in 250 mls @ 166.667 mls/hr IV Q12H PRADIP Last Admin: 04/29/17 12:18 Dose: 166.667 mls/hr Lorazepam (Ativan) 2 mg IV Q1H PRN PRN Reason: CIWA-Ar 8-15 Lorazepam (Ativan) 4 mg IV Q1H PRN PRN Reason: CIWA-Ar 16-25 Lorazepam (Ativan) 4 mg IV Q15MIN PRN PRN Reason: CIWA-Ar >25 Phenobarbital (Phenobarbital) 130 mg IV Q15M PRN PRN Reason: DT's refractory to BZD's Vancomycin HCl (Vancomycin Pharmacy To Dose) 1 each IV PKCONSULT PRADIP PRN Reason: Protocol Physical Examination Vital Signs Pulse Resp BP Pulse Ox 115 H 14 144/87 92 04/28/17 07:11 04/28/17 07:11 04/28/17 07:11 04/28/17 07:11 General appearance: no acute distress, other (lethargic) Cardiac: Positive: Reg Rate and Rhythm Results 04/28/17 07:43 04/28/17 07:43 Cardiac Enzymes 04/28/17 Range/Units 13:23 CK-MB (CK-2) 56.2 H (0.0-4.0) ng/mL Assessment and Plan Sepsis Elevated liver enzymes Hypoglycemia Rhabdomyolysis Mild elevated troponin, nonspecific Substance abuse AAA measuring 3.2cm
--- NOTE | 2017-04-29 16:30 | Progress Note ---
Assessment and Plan Assessment and plan: Patient is 52-year-old man who presents to [facility] emergency department with unresponsiveness from a local hotel. He was found to have opiates, amphetamine , cocaine and benzodiazepine and urine drug screen. He was found to have a white count of 34.6, blood glucose of 25 CT abdomen and pelvis with IV contrast: Bilateral lower lobe consolidation subsegmental atelectasis or infiltrate, diffuse fatty liver, left adrenal adenoma, nonobstructive bilateral renal calculi, subtle bilateral renal cysts, 3.2 cm AP diameter infrarenal abdominal aortic aneurysm, top normal size mildly enlarged prostate, correlate with PSA, mild degenerative disc L5-S1 neural foramen stenosis, soft tissue swelling overlying the mid line lower lumbar subcutaneous fat posteriorly as well as overlying the left buttocks and left hip , correlate for possible cellulitis/hematoma, splenectomy. CT brain without contrast read as partially motion compromised exam without evidence of acute intracranial process. 1.3 cm inferior right maxillary sinus retention cyst versus polyp Portable chest x-ray read as unremarkable, no evidence of aspiration at this time -Acute toxic metabolic encephalopathy due to drug overdose -Hypoglycemia, reason unknown: Check A1c, treat with dextrose. -Polysubstance drug abuse: Was a confusion resolved will counselor at law on stopping -Suspected sepsis ?aspiration pna, ?cellulitis: Continue IV antibiotics, consult infectious disease -3.2cm AAA: Cardiology following. History Interval history: Patient was seen and examined. Follow-up on current diagnosis/[place] says which is still present. Overnight uneventful. Imaging, nursing note, chart, labs and old chart reviewed. Hospitalist Physical - Physical exam Narrative exam: GEN: Unkempt, BMI 25 NAD, somnolent and confused but easily aroused HEENT: NCAT, EOMI, PERRL, OP Clear NECK: supple, no adenopathy, no thyromegaly, no JVD CVS/HEART: RRR, NORMAL S1S2, NO JVD, pulses present bilaterally CHEST/LUNGS: CTA B, Symmetrical chest expansion, good air entry bilaterally GI/Abdomen: soft, NTND, good bowel sounds, no guarding or rebound /Bladder: no suprapubic tenderness, no CVA or paraspinal tenderness EXT/Skin: no c/c/e, no obvious rash MSK: FROM x 4 Neuro: CN 2-12 grossly intact, no new focal deficits Psych: calm - Constitutional Vitals: Temp Pulse Resp BP Pulse Ox 99.4 F 87 11 L 161/94 96 04/29/17 12:00 04/29/17 14:00 04/29/17 14:00 04/29/17 14:00 04/29/17 14:00 General appearance: Present: no acute distress, other (lethargic) Results - Labs CBC & Chem 7: 04/28/17 07:43 04/28/17 07:43 Labs: Laboratory Last Values WBC 34.6 K/mm3 (4.5-11.0) H 04/28/17 07:43 RBC 5.00 M/mm3 (3.65-5.03) 04/28/17 07:43 Hgb 16.5 gm/dl (11.8-15.2) H 04/28/17 07:43 Hct 48.0 % (35.5-45.6) H 04/28/17 07:43 MCV 96 fl (84-94) H 04/28/17 07:43 MCH 33 pg (28-32) H 04/28/17 07:43 MCHC 34 % (32-34) 04/28/17 07:43 RDW 16.0 % (13.2-15.2) H 04/28/17 07:43 Plt Count 287 K/mm3 (140-440) 04/28/17 07:43 Add Manual Diff Complete 04/28/17 07:43 Total Counted 100 04/28/17 07:43 Seg Neuts % (Manual) 90.0 % (40.0-70.0) H 04/28/17 07:43 Band Neutrophils % 1.0 % 04/28/17 07:43 Lymphocytes % (Manual) 2.0 % (13.4-35.0) L 04/28/17 07:43 Reactive Lymphs % (Man) 0 % 04/28/17 07:43 Monocytes % (Manual) 7.0 % (0.0-7.3) 04/28/17 07:43 Eosinophils % (Manual) 0 % (0.0-4.3) 04/28/17 07:43 Basophils % (Manual) 0 % (0.0-1.8) 04/28/17 07:43 Metamyelocytes % 0 % 04/28/17 07:43 Myelocytes % 0 % 04/28/17 07:43 Promyelocytes % 0 % 04/28/17 07:43 Blast Cells % 0 % 04/28/17 07:43 Nucleated RBC % Not Reportable 04/28/17 07:43 Seg Neutrophils # Man 31.1 K/mm3 (1.8-7.7) H 04/28/17 07:43 Band Neutrophils # 0.3 K/mm3 04/28/17 07:43 Lymphocytes # (Manual) 0.7 K/mm3 (1.2-5.4) L 04/28/17 07:43 Abs React Lymphs (Man) 0.0 K/mm3 04/28/17 07:43 Monocytes # (Manual) 2.4 K/mm3 (0.0-0.8) H 04/28/17 07:43 Eosinophils # (Manual) 0.0 K/mm3 (0.0-0.4) 04/28/17 07:43 Basophils # (Manual) 0.0 K/mm3 (0.0-0.1) 04/28/17 07:43 Metamyelocytes # 0.0 K/mm3 04/28/17 07:43 Myelocytes # 0.0 K/mm3 04/28/17 07:43 Promyelocytes # 0.0 K/mm3 04/28/17 07:43 Blast Cells # 0.0 K/mm3 04/28/17 07:43 WBC Morphology Not Reportable 04/28/17 07:43 Hypersegmented Neuts Not Reportable 04/28/17 07:43 Hyposegmented Neuts Not Reportable 04/28/17 07:43 Hypogranular Neuts Not Reportable 04/28/17 07:43 Smudge Cells Not Reportable 04/28/17 07:43 Toxic Granulation Not Reportable 04/28/17 07:43 Toxic Vacuolation Not Reportable 04/28/17 07:43 Dohle Bodies Not Reportable 04/28/17 07:43 Pelger-Huet Anomaly Not Reportable 04/28/17 07:43 Merlene Rods Not Reportable 04/28/17 07:43 Platelet Estimate Not Reportable 04/28/17 07:43 Clumped Platelets Not Reportable 04/28/17 07:43 Plt Clumps, EDTA Not Reportable 04/28/17 07:43 Large Platelets Not Reportable 04/28/17 07:43 Giant Platelets Not Reportable 04/28/17 07:43 Platelet Satelliting Not Reportable 04/28/17 07:43 Plt Morphology Comment Not Reportable 04/28/17 07:43 RBC Morphology Normal 04/28/17 07:43 Dimorphic RBCs Not Reportable 04/28/17 07:43 Polychromasia Not Reportable 04/28/17 07:43 Hypochromasia Not Reportable 04/28/17 07:43 Poikilocytosis Not Reportable 04/28/17 07:43 Anisocytosis Not Reportable 04/28/17 07:43 Microcytosis Not Reportable 04/28/17 07:43 Macrocytosis Not Reportable 04/28/17 07:43 Spherocytes Not Reportable 04/28/17 07:43 Pappenheimer Bodies Not Reportable 04/28/17 07:43 Sickle Cells Not Reportable 04/28/17 07:43 Target Cells Not Reportable 04/28/17 07:43 Tear Drop Cells Not Reportable 04/28/17 07:43 Ovalocytes Not Reportable 04/28/17 07:43 Helmet Cells Not Reportable 04/28/17 07:43 Singer-Tab Bodies Not Reportable 04/28/17 07:43 [place] Rings Not Reportable 04/28/17 07:43 Victorino Cells Not Reportable 04/28/17 07:43 Bite Cells Not Reportable 04/28/17 07:43 Crenated Cell Not Reportable 04/28/17 07:43 Elliptocytes Not Reportable 04/28/17 07:43 Acanthocytes (Spur) Not Reportable 04/28/17 07:43 Rouleaux Not Reportable 04/28/17 07:43 Hemoglobin C Crystals Not Reportable 04/28/17 07:43 Schistocytes Not Reportable 04/28/17 07:43 Malaria parasites Not Reportable 04/28/17 07:43 Gopi Bodies Not Reportable 04/28/17 07:43 Hem Pathologist Commnt No 04/28/17 07:43 PT 14.0 Sec. (12.2-14.9) 04/28/17 07:43 INR 1.03 (0.87-1.13) 04/28/17 07:43 APTT 29.2 Sec. (24.2-36.6) 04/28/17 07:43 VBG pH 7.275 (7.320-7.420) L 04/28/17 08:57 Sodium 144 mmol/L (137-145) 04/28/17 07:43 Potassium 3.5 mmol/L (3.6-5.0) L 04/28/17 07:43 Chloride 105.2 mmol/L (98-107) 04/28/17 07:43 Carbon Dioxide 21 mmol/L (22-30) L 04/28/17 07:43 Anion Gap 21 mmol/L 04/28/17 07:43 BUN 23 mg/dL (9-20) H 04/28/17 07:43 Creatinine 1.4 mg/dL (0.8-1.5) 04/28/17 07:43 Estimated GFR 54 ml/min 04/28/17 07:43 BUN/Creatinine Ratio 16 % 04/28/17 07:43 Glucose 25 mg/dL (75-100) L* 04/28/17 07:43 POC Glucose 89 (70-105) 04/28/17 17:13 Osmolality 290 Mosm/kg 04/28/17 07:43 Lactic Acid 1.10 mmol/L (0.7-2.0) 04/28/17 14:53 Calcium 7.9 mg/dL (8.4-10.2) L 04/28/17 07:43 Phosphorus 1.50 mg/dL (2.5-4.5) L 04/29/17 08:09 Magnesium 1.90 mg/dL (1.7-2.3) 04/29/17 08:09 Total Bilirubin 1.90 mg/dL (0.1-1.2) H 04/28/17 07:43 AST 342 units/L (5-40) H 04/28/17 07:43 ALT 139 units/L (7-56) H 04/28/17 07:43 Alkaline Phosphatase 147 units/L (35-129) H 04/28/17 07:43 Ammonia < 10.0 umol/L (25-60) L 04/29/17 08:09 Total Creatine Kinase 3089 units/L (55-170) H 04/29/17 08:09 CK-MB (CK-2) 56.2 ng/mL (0.0-4.0) H 04/28/17 13:23 CK-MB (CK-2) Rel Index 1.0 (0-4) 04/28/17 13:23 Troponin T 0.058 ng/mL (0.00-0.029) H 04/28/17 Unknown Total Protein 6.8 g/dL (6.3-8.2) 04/28/17 07:43 Albumin 3.7 g/dL (3.9-5) L 04/28/17 07:43 Albumin/Globulin Ratio 1.2 % 04/28/17 07:43 Triglycerides 64 mg/dL (2-149) 04/28/17 Unknown Cholesterol 140 mg/dL (50-199) 04/28/17 Unknown LDL Cholesterol Direct 64 mg/dL (50-130) 04/28/17 Unknown HDL Cholesterol 64 mg/dL (40-59) H 04/28/17 Unknown Cholesterol/HDL Ratio 2.18 % 04/28/17 Unknown Amylase 70 units/L (27-131) 04/29/17 08:09 Lipase 208 units/L (13-60) H 04/28/17 Unknown Urine Color Diamante (Yellow) 04/28/17 09:09 Urine Turbidity Slightly-cloudy (Clear) 04/28/17 09:09 Urine pH 5.0 (5.0-7.0) 04/28/17 09:09 Ur Specific [place] 1.023 (1.003-1.030) 04/28/17 09:09 Urine Protein 100 mg/dl mg/dL (Negative) 04/28/17 09:09 Urine Glucose (UA) Neg mg/dL (Negative) 04/28/17 09:09 Urine Ketones Neg mg/dL (Negative) 04/28/17 09:09 Urine Blood Lg (Negative) 04/28/17 09:09 Urine Nitrite Neg (Negative) 04/28/17 09:09 Urine Bilirubin Neg (Negative) 04/28/17 09:09 Urine Urobilinogen 4.0 mg/dL (<2.0) 04/28/17 09:09 Ur Leukocyte Esterase Neg (Negative) 04/28/17 09:09 Urine WBC (Auto) 15.0 /HPF (0.0-6.0) H 04/28/17 09:09 Urine RBC (Auto) 11.0 /HPF (0.0-6.0) 04/28/17 09:09 U Epithel Cells (Auto) 1.0 /HPF (0-13.0) 04/28/17 09:09 Urine Bacteria (Auto) 1+ /HPF (Negative) 04/28/17 09:09 Urine Mucus Few /HPF 04/28/17 09:09 Salicylates < 0.3 mg/dL (2.8-20.0) L 04/28/17 09:09 Urine Opiates Screen Presumptive positive 04/28/17 09:09 Urine Methadone Screen Presumptive negative 04/28/17 09:09 Acetaminophen < 15.0 ug/mL (10.0-30.0) 04/28/17 09:09 Ur Barbiturates Screen Presumptive negative 04/28/17 09:09 Ur Phencyclidine Scrn Presumptive negative 04/28/17 09:09 Ur Amphetamines Screen Presumptive positive 04/28/17 09:09 Phenobarbital < 2.4 mg/L (15.0-40.0) L 04/28/17 07:43 U Benzodiazepines Scrn Presumptive positive 04/28/17 09:09 Urine Cocaine Screen Presumptive positive 04/28/17 09:09 U Marijuana (THC) Screen Presumptive negative 04/28/17 09:09 Drugs of Abuse Note Disclamer 04/28/17 09:09 Plasma/Serum Alcohol < 0.01 gm% (0-0.07) 04/28/17 09:09 C. difficile Toxin A&B Negative (Negative) 04/28/17 15:36 Hepatitis A IgM Ab Non-reactive (NonReactive) 04/28/17 08:57 Hep Bs Antigen Non-reactive (Negative) 04/28/17 08:57 Hep B Core IgM Ab Non-reactive (NonReactive) 04/28/17 08:57 Hepatitis C Antibody Non-reactive (NonReactive) 04/28/17 08:57
[2017-04-30] MEDS: ZOSYN/NS 4.5GM/100ML 4.5 GM/100 ML VIAL IV SCH ×3 (05:55→21:09)
[2017-04-30 07:24] LABS: Mean Corpuscular HGB Conc 36 % (32-34); Mean Corpuscular Hemoglobin 33 pg (28-32); Mean Corpuscular Volume 93 fl (84-94); Platelet Count 213 K/mm3 (140-440); Red Blood Count 4.37 M/mm3 (3.65-5.03); Red Cell Distribution Width 16.1 % (13.2-15.2)
[2017-04-30 07:32] LABS: Hematocrit 40.5 % (35.5-45.6); Hemoglobin 14.5 gm/dl (11.8-15.2)
[2017-04-30 07:49] LABS: Alanine Aminotransferase 63 units/L (7-56); Albumin 2.5 g/dL (3.9-5); BUN/Creatinine Ratio 11; Blood Urea Nitrogen 8 mg/dL (9-20); Calcium 7.7 mg/dL (8.4-10.2); Hemolysis Index 13
[2017-04-30] MEDS: D5NS 1,000 ML IV SCH ×2 (11:57→22:29)
--- NOTE | 2017-04-30 12:20 | Progress Note ---
Assessment and Plan Assessment and plan: Patient is 52-year-old man who presents to [facility] emergency department with unresponsiveness from a local hotel. He was found to have opiates, amphetamine , cocaine and benzodiazepine and urine drug screen. He was found to have a white count of 34.6, blood glucose of 25 CT abdomen and pelvis with IV contrast: Bilateral lower lobe consolidation subsegmental atelectasis or infiltrate, diffuse fatty liver, left adrenal adenoma, nonobstructive bilateral renal calculi, subtle bilateral renal cysts, 3.2 cm AP diameter infrarenal abdominal aortic aneurysm, top normal size mildly enlarged prostate, correlate with PSA, mild degenerative disc L5-S1 neural foramen stenosis, soft tissue swelling overlying the mid line lower lumbar subcutaneous fat posteriorly as well as overlying the left buttocks and left hip , correlate for possible cellulitis/hematoma, splenectomy. CT brain without contrast read as partially motion compromised exam without evidence of acute intracranial process. 1.3 cm inferior right maxillary sinus retention cyst versus polyp Portable chest x-ray read as unremarkable, no evidence of aspiration at this time -Acute toxic metabolic encephalopathy due to drug overdose, he denies suicidal attempt -Hypoglycemia, reason unknown: Check A1c, treat with dextrose. -Polysubstance drug abuse: Was a confusion resolved will licensed mental health counselor on stopping -Suspected sepsis ?aspiration pna, ?cellulitis: Continue IV antibiotics, consult infectious disease -3.2cm AAA: Cardiology following. 04/30/2017: Mental status is improving and he admits to taking too much heroin which he has stopped for 60 days. His mental status continues to improve and is oriented 3 may discharge tomorrow History Interval history: Patient was seen and examined. Follow-up on current diagnosis/[place] says which is still present. Overnight uneventful. Imaging, nursing note, chart, labs and old chart reviewed. Hospitalist Physical - Physical exam Narrative exam: GEN: Unkempt, BMI 25 NAD, awake alert oriented 2 HEENT: NCAT, EOMI, PERRL, OP Clear NECK: supple, no adenopathy, no thyromegaly, no JVD CVS/HEART: RRR, NORMAL S1S2, NO JVD, pulses present bilaterally CHEST/LUNGS: CTA B, Symmetrical chest expansion, good air entry bilaterally GI/Abdomen: soft, NTND, good bowel sounds, no guarding or rebound /Bladder: no suprapubic tenderness, no CVA or paraspinal tenderness EXT/Skin: no c/c/e, no obvious rash MSK: FROM x 4 Neuro: CN 2-12 grossly intact, no new focal deficits Psych: calm - Constitutional Vitals: Temp Pulse Resp BP Pulse Ox 97.8 F 63 20 143/83 98 04/30/17 08:04 04/30/17 08:04 04/30/17 08:04 04/30/17 08:04 04/30/17 08:04 General appearance: Present: no acute distress, other (lethargic) Results - Labs CBC & Chem 7: 04/30/17 05:48 04/30/17 05:48 Labs: Laboratory Last Values WBC 18.1 K/mm3 (4.5-11.0) H 04/30/17 05:48 RBC 4.37 M/mm3 (3.65-5.03) 04/30/17 05:48 Hgb 14.5 gm/dl (11.8-15.2) 04/30/17 05:48 Hct 40.5 % (35.5-45.6) D 04/30/17 05:48 MCV 93 fl (84-94) 04/30/17 05:48 MCH 33 pg (28-32) H 04/30/17 05:48 MCHC 36 % (32-34) H 04/30/17 05:48 RDW 16.1 % (13.2-15.2) H 04/30/17 05:48 Plt Count 213 K/mm3 (140-440) 04/30/17 05:48 Add Manual Diff Complete 04/28/17 07:43 Total Counted 100 04/28/17 07:43 Seg Neuts % (Manual) 90.0 % (40.0-70.0) H 04/28/17 07:43 Band Neutrophils % 1.0 % 04/28/17 07:43 Lymphocytes % (Manual) 2.0 % (13.4-35.0) L 04/28/17 07:43 Reactive Lymphs % (Man) 0 % 04/28/17 07:43 Monocytes % (Manual) 7.0 % (0.0-7.3) 04/28/17 07:43 Eosinophils % (Manual) 0 % (0.0-4.3) 04/28/17 07:43 Basophils % (Manual) 0 % (0.0-1.8) 04/28/17 07:43 Metamyelocytes % 0 % 04/28/17 07:43 Myelocytes % 0 % 04/28/17 07:43 Promyelocytes % 0 % 04/28/17 07:43 Blast Cells % 0 % 04/28/17 07:43 Nucleated RBC % Not Reportable 04/28/17 07:43 Seg Neutrophils # Man 31.1 K/mm3 (1.8-7.7) H 04/28/17 07:43 Band Neutrophils # 0.3 K/mm3 04/28/17 07:43 Lymphocytes # (Manual) 0.7 K/mm3 (1.2-5.4) L 04/28/17 07:43 Abs React Lymphs (Man) 0.0 K/mm3 04/28/17 07:43 Monocytes # (Manual) 2.4 K/mm3 (0.0-0.8) H 04/28/17 07:43 Eosinophils # (Manual) 0.0 K/mm3 (0.0-0.4) 04/28/17 07:43 Basophils # (Manual) 0.0 K/mm3 (0.0-0.1) 04/28/17 07:43 Metamyelocytes # 0.0 K/mm3 04/28/17 07:43 Myelocytes # 0.0 K/mm3 04/28/17 07:43 Promyelocytes # 0.0 K/mm3 04/28/17 07:43 Blast Cells # 0.0 K/mm3 04/28/17 07:43 WBC Morphology Not Reportable 04/28/17 07:43 Hypersegmented Neuts Not Reportable 04/28/17 07:43 Hyposegmented Neuts Not Reportable 04/28/17 07:43 Hypogranular Neuts Not Reportable 04/28/17 07:43 Smudge Cells Not Reportable 04/28/17 07:43 Toxic Granulation Not Reportable 04/28/17 07:43 Toxic Vacuolation Not Reportable 04/28/17 07:43 Dohle Bodies Not Reportable 04/28/17 07:43 Pelger-Huet Anomaly Not Reportable 04/28/17 07:43 Merlene Rods Not Reportable 04/28/17 07:43 Platelet Estimate Not Reportable 04/28/17 07:43 Clumped Platelets Not Reportable 04/28/17 07:43 Plt Clumps, EDTA Not Reportable 04/28/17 07:43 Large Platelets Not Reportable 04/28/17 07:43 Giant Platelets Not Reportable 04/28/17 07:43 Platelet Satelliting Not Reportable 04/28/17 07:43 Plt Morphology Comment Not Reportable 04/28/17 07:43 RBC Morphology Normal 04/28/17 07:43 Dimorphic RBCs Not Reportable 04/28/17 07:43 Polychromasia Not Reportable 04/28/17 07:43 Hypochromasia Not Reportable 04/28/17 07:43 Poikilocytosis Not Reportable 04/28/17 07:43 Anisocytosis Not Reportable 04/28/17 07:43 Microcytosis Not Reportable 04/28/17 07:43 Macrocytosis Not Reportable 04/28/17 07:43 Spherocytes Not Reportable 04/28/17 07:43 Pappenheimer Bodies Not Reportable 04/28/17 07:43 Sickle Cells Not Reportable 04/28/17 07:43 Target Cells Not Reportable 04/28/17 07:43 Tear Drop Cells Not Reportable 04/28/17 07:43 Ovalocytes Not Reportable 04/28/17 07:43 Helmet Cells Not Reportable 04/28/17 07:43 Singer-Wynnewood Bodies Not Reportable 04/28/17 07:43 Stanford Rings Not Reportable 04/28/17 07:43 Victorino Cells Not Reportable 04/28/17 07:43 Bite Cells Not Reportable 04/28/17 07:43 Crenated Cell Not Reportable 04/28/17 07:43 Elliptocytes Not Reportable 04/28/17 07:43 Acanthocytes (Spur) Not Reportable 04/28/17 07:43 Rouleaux Not Reportable 04/28/17 07:43 Hemoglobin C Crystals Not Reportable 04/28/17 07:43 Schistocytes Not Reportable 04/28/17 07:43 Malaria parasites Not Reportable 04/28/17 07:43 Gopi Bodies Not Reportable 04/28/17 07:43 Hem Pathologist Commnt No 04/28/17 07:43 PT 14.0 Sec. (12.2-14.9) 04/28/17 07:43 INR 1.03 (0.87-1.13) 04/28/17 07:43 APTT 29.2 Sec. (24.2-36.6) 04/28/17 07:43 VBG pH 7.275 (7.320-7.420) L 04/28/17 08:57 Sodium 146 mmol/L (137-145) H 04/30/17 05:48 Potassium 3.1 mmol/L (3.6-5.0) L 04/30/17 05:48 Chloride 110.7 mmol/L (98-107) H 04/30/17 05:48 Carbon Dioxide 22 mmol/L (22-30) 04/30/17 05:48 Anion Gap 16 mmol/L 04/30/17 05:48 BUN 8 mg/dL (9-20) L 04/30/17 05:48 Creatinine 0.7 mg/dL (0.8-1.5) L 04/30/17 05:48 Estimated GFR > 60 ml/min 04/30/17 05:48 BUN/Creatinine Ratio 11 % 04/30/17 05:48 Glucose 112 mg/dL (75-100) H 04/30/17 05:48 POC Glucose 89 (70-105) 04/28/17 17:13 Osmolality 290 Mosm/kg 04/28/17 07:43 Lactic Acid 1.10 mmol/L (0.7-2.0) 04/28/17 14:53 Calcium 7.7 mg/dL (8.4-10.2) L 04/30/17 05:48 Phosphorus 1.50 mg/dL (2.5-4.5) L 04/29/17 08:09 Magnesium 1.90 mg/dL (1.7-2.3) 04/30/17 05:48 Total Bilirubin 1.00 mg/dL (0.1-1.2) 04/30/17 05:48 AST 65 units/L (5-40) H 04/30/17 05:48 ALT 63 units/L (7-56) H 04/30/17 05:48 Alkaline Phosphatase 60 units/L (35-129) 04/30/17 05:48 Ammonia < 10.0 umol/L (25-60) L 04/29/17 08:09 Total Creatine Kinase 1947 units/L (55-170) H 04/30/17 05:48 CK-MB (CK-2) 56.2 ng/mL (0.0-4.0) H 04/28/17 13:23 CK-MB (CK-2) Rel Index 1.0 (0-4) 04/28/17 13:23 Troponin T 0.058 ng/mL (0.00-0.029) H 04/28/17 Unknown Total Protein 4.9 g/dL (6.3-8.2) L D 04/30/17 05:48 Albumin 2.5 g/dL (3.9-5) L 04/30/17 05:48 Albumin/Globulin Ratio 1.0 % 04/30/17 05:48 Triglycerides 64 mg/dL (2-149) 04/28/17 Unknown Cholesterol 140 mg/dL (50-199) 04/28/17 Unknown LDL Cholesterol Direct 64 mg/dL (50-130) 04/28/17 Unknown HDL Cholesterol 64 mg/dL (40-59) H 04/28/17 Unknown Cholesterol/HDL Ratio 2.18 % 04/28/17 Unknown Amylase 70 units/L (27-131) 04/29/17 08:09 Lipase 208 units/L (13-60) H 04/28/17 Unknown Urine Color Diamante (Yellow) 04/28/17 09:09 Urine Turbidity Slightly-cloudy (Clear) 04/28/17 09:09 Urine pH 5.0 (5.0-7.0) 04/28/17 09:09 Ur Specific [place] 1.023 (1.003-1.030) 04/28/17 09:09 Urine Protein 100 mg/dl mg/dL (Negative) 04/28/17 09:09 Urine Glucose (UA) Neg mg/dL (Negative) 04/28/17 09:09 Urine Ketones Neg mg/dL (Negative) 04/28/17 09:09 Urine Blood Lg (Negative) 04/28/17 09:09 Urine Nitrite Neg (Negative) 04/28/17 09:09 Urine Bilirubin Neg (Negative) 04/28/17 09:09 Urine Urobilinogen 4.0 mg/dL (<2.0) 04/28/17 09:09 Ur Leukocyte Esterase Neg (Negative) 04/28/17 09:09 Urine WBC (Auto) 15.0 /HPF (0.0-6.0) H 04/28/17 09:09 Urine RBC (Auto) 11.0 /HPF (0.0-6.0) 04/28/17 09:09 U Epithel Cells (Auto) 1.0 /HPF (0-13.0) 04/28/17 09:09 Urine Bacteria (Auto) 1+ /HPF (Negative) 04/28/17 09:09 Urine Mucus Few /HPF 04/28/17 09:09 Salicylates < 0.3 mg/dL (2.8-20.0) L 04/28/17 09:09 Urine Opiates Screen Presumptive positive 04/28/17 09:09 Urine Methadone Screen Presumptive negative 04/28/17 09:09 Acetaminophen < 15.0 ug/mL (10.0-30.0) 04/28/17 09:09 Ur Barbiturates Screen Presumptive negative 04/28/17 09:09 Ur Phencyclidine Scrn Presumptive negative 04/28/17 09:09 Ur Amphetamines Screen Presumptive positive 04/28/17 09:09 Phenobarbital < 2.4 mg/L (15.0-40.0) L 04/28/17 07:43 U Benzodiazepines Scrn Presumptive positive 04/28/17 09:09 Urine Cocaine Screen Presumptive positive 04/28/17 09:09 U Marijuana (THC) Screen Presumptive negative 04/28/17 09:09 Drugs of Abuse Note Disclamer 04/28/17 09:09 Plasma/Serum Alcohol < 0.01 gm% (0-0.07) 04/28/17 09:09 C. difficile Toxin A&B Negative (Negative) 04/28/17 15:36 Hepatitis A IgM Ab Non-reactive (NonReactive) 04/28/17 08:57 Hep Bs Antigen Non-reactive (Negative) 04/28/17 08:57 Hep B Core IgM Ab Non-reactive (NonReactive) 04/28/17 08:57 Hepatitis C Antibody Non-reactive (NonReactive) 04/28/17 08:57
[2017-04-30] MEDS: VANCOMYCIN/NS 1 GM/250 ML 1 GM/250 ML BAG IV SCH (13:09)
--- NOTE | 2017-04-30 20:27 | Progress Note ---
Assessment and Plan Sepsis Syndrome Acute Encephalopathy Polysubstance Abuse MANUELA Rhabdomyolysis Possible element of Shock Liver Bilateral Pneumonia - continue AB's per ID recs - supplemental oxygen to keep sats > 90% - prn bronchodilators - continue aspiration precautions - watch for possible DT's - GI & VTE prophylaxis - follow clinically Subjective Date of service: 04/30/17 Principal diagnosis: Sepsis Syndrome; AMS Interval history: Patient is seen today for: Sepsis Syndrome; AMS Seen and examined at bedside; 24hour events reviewed; nursing and respiratory care staff consulted; no adverse overnight events reported to me; resting peacefully in bed; states that he feels better; No N/V/F/C; no chest pains or palpitations Objective Vital Signs - 12hr 04/30/17 04/30/17 13:04 17:12 Temperature 98.6 F 97.7 F Pulse Rate 72 69 Respiratory 18 18 Rate Blood Pressure 144/83 142/89 O2 Sat by Pulse 98 99 Oximetry Constitutional: no acute distress, alert Eyes: non-icteric ENT: oropharynx moist Neck: supple, no lymphadenopathy, no JVD Effort: normal Ascultation: Bilateral: clear Percussion: Bilateral: not dull Cardiovascular: regular rate and rhythm Gastrointestinal: normoactive bowel sounds, soft, non-tender, non-distended Integumentary: normal Extremities: no cyanosis, no edema, pink and warm, pulses normal Neurologic: normal mental status, non-focal exam, pupils equal and round, motor strength normal and Psychiatric: mood appropriate, affect normal CBC and BMP: 05/02/17 05:48 05/02/17 05:48 ABG, PT/INR, D-dimer: PT/INR, D-dimer PT 14.0 Sec. (12.2-14.9) 04/28/17 07:43 INR 1.03 (0.87-1.13) 04/28/17 07:43 Abnormal lab findings: Abnormal Labs 04/28/17 04/28/17 04/28/17 07:43 07:43 07:43 WBC 34.6 H Hgb 16.5 H Hct 48.0 H MCV 96 H MCH 33 H MCHC RDW 16.0 H Seg Neuts % (Manual) 90.0 H Lymphocytes % (Manual) 2.0 L Seg Neutrophils # Man 31.1 H Lymphocytes # (Manual) 0.7 L Monocytes # (Manual) 2.4 H VBG pH Sodium Potassium 3.5 L Chloride Carbon Dioxide 21 L BUN 23 H Creatinine Glucose 25 L* POC Glucose Lactic Acid Calcium 7.9 L Phosphorus Total Bilirubin 1.90 H AST 342 H ALT 139 H Alkaline Phosphatase 147 H Ammonia Total Creatine Kinase CK-MB (CK-2) Troponin T Total Protein Albumin 3.7 L HDL Cholesterol Lipase Urine WBC (Auto) Salicylates Phenobarbital < 2.4 L 04/28/17 04/28/17 04/28/17 07:47 08:36 08:57 WBC Hgb Hct MCV MCH MCHC RDW Seg Neuts % (Manual) Lymphocytes % (Manual) Seg Neutrophils # Man Lymphocytes # (Manual) Monocytes # (Manual) VBG pH Sodium Potassium Chloride Carbon Dioxide BUN Creatinine Glucose POC Glucose < 40 L Lactic Acid Calcium Phosphorus Total Bilirubin AST ALT Alkaline Phosphatase Ammonia 72.0 H Total Creatine Kinase 7440 H CK-MB (CK-2) Troponin T Total Protein Albumin HDL Cholesterol Lipase Urine WBC (Auto) Salicylates Phenobarbital 04/28/17 04/28/17 04/28/17 08:57 08:57 09:09 WBC Hgb Hct MCV MCH MCHC RDW Seg Neuts % (Manual) Lymphocytes % (Manual) Seg Neutrophils # Man Lymphocytes # (Manual) Monocytes # (Manual) VBG pH 7.275 L Sodium Potassium Chloride Carbon Dioxide BUN Creatinine Glucose POC Glucose Lactic Acid 2.90 H* Calcium Phosphorus Total Bilirubin AST ALT Alkaline Phosphatase Ammonia Total Creatine Kinase CK-MB (CK-2) Troponin T Total Protein Albumin HDL Cholesterol Lipase Urine WBC (Auto) 15.0 H Salicylates Phenobarbital 04/28/17 04/28/17 04/28/17 09:09 09:20 13:23 WBC Hgb Hct MCV MCH MCHC RDW Seg Neuts % (Manual) Lymphocytes % (Manual) Seg Neutrophils # Man Lymphocytes # (Manual) Monocytes # (Manual) VBG pH Sodium Potassium Chloride Carbon Dioxide BUN Creatinine Glucose POC Glucose 51 L Lactic Acid Calcium Phosphorus Total Bilirubin AST ALT Alkaline Phosphatase Ammonia Total Creatine Kinase 5552 H CK-MB (CK-2) 56.2 H Troponin T 0.059 H Total Protein Albumin HDL Cholesterol Lipase Urine WBC (Auto) Salicylates < 0.3 L Phenobarbital 04/28/17 04/28/17 04/29/17 Unknown Unknown 08:09 WBC Hgb Hct MCV MCH MCHC RDW Seg Neuts % (Manual) Lymphocytes % (Manual) Seg Neutrophils # Man Lymphocytes # (Manual) Monocytes # (Manual) VBG pH Sodium Potassium Chloride Carbon Dioxide BUN Creatinine Glucose POC Glucose Lactic Acid Calcium Phosphorus 1.50 L Total Bilirubin AST ALT Alkaline Phosphatase Ammonia Total Creatine Kinase CK-MB (CK-2) Troponin T 0.058 H Total Protein Albumin HDL Cholesterol 64 H Lipase 208 H Urine WBC (Auto) Salicylates Phenobarbital 04/29/17 04/29/17 04/29/17 08:09 08:09 19:24 WBC Hgb Hct MCV MCH MCHC RDW Seg Neuts % (Manual) Lymphocytes % (Manual) Seg Neutrophils # Man Lymphocytes # (Manual) Monocytes # (Manual) VBG pH Sodium Potassium Chloride Carbon Dioxide BUN Creatinine Glucose POC Glucose Lactic Acid Calcium Phosphorus Total Bilirubin AST ALT Alkaline Phosphatase Ammonia < 10.0 L Total Creatine Kinase 3089 H 2963 H CK-MB (CK-2) Troponin T Total Protein Albumin HDL Cholesterol Lipase Urine WBC (Auto) Salicylates Phenobarbital 04/30/17 04/30/17 04/30/17 05:48 05:48 05:48 WBC 18.1 H Hgb Hct MCV MCH 33 H MCHC 36 H RDW 16.1 H Seg Neuts % (Manual) Lymphocytes % (Manual) Seg Neutrophils # Man Lymphocytes # (Manual) Monocytes # (Manual) VBG pH Sodium 146 H Potassium 3.1 L Chloride 110.7 H Carbon Dioxide BUN 8 L Creatinine 0.7 L Glucose 112 H POC Glucose Lactic Acid Calcium 7.7 L Phosphorus Total Bilirubin AST 65 H ALT 63 H Alkaline Phosphatase Ammonia Total Creatine Kinase 1947 H CK-MB (CK-2) Troponin T Total Protein 4.9 L D Albumin 2.5 L HDL Cholesterol Lipase Urine WBC (Auto) Salicylates Phenobarbital Chest x-ray: image reviewed Allied health notes reviewed: nursing
[2017-05-01] MEDS: VANCOMYCIN/NS 1 GM/250 ML 1 GM/250 ML BAG IV SCH (00:04)
[2017-05-01] MEDS: D5NS 1,000 ML IV SCH ×2 (05:22→16:24)
[2017-05-01] MEDS: ZOSYN/NS 4.5GM/100ML 4.5 GM/100 ML VIAL IV SCH ×3 (05:23→22:06)
--- NOTE | 2017-05-01 14:50 | Progress Note ---
Assessment and Plan Assessment and plan: Patient is 52-year-old man who presents to [facility] emergency department with unresponsiveness from a local hotel. He was found to have opiates, amphetamine , cocaine and benzodiazepine and urine drug screen. He was found to have a white count of 34.6, blood glucose of 25 CT abdomen and pelvis with IV contrast: Bilateral lower lobe consolidation subsegmental atelectasis or infiltrate, diffuse fatty liver, left adrenal adenoma, nonobstructive bilateral renal calculi, subtle bilateral renal cysts, 3.2 cm AP diameter infrarenal abdominal aortic aneurysm, top normal size mildly enlarged prostate, correlate with PSA, mild degenerative disc L5-S1 neural foramen stenosis, soft tissue swelling overlying the mid line lower lumbar subcutaneous fat posteriorly as well as overlying the left buttocks and left hip , correlate for possible cellulitis/hematoma, splenectomy. CT brain without contrast read as partially motion compromised exam without evidence of acute intracranial process. 1.3 cm inferior right maxillary sinus retention cyst versus polyp Portable chest x-ray read as unremarkable, no evidence of aspiration at this time -Acute toxic metabolic encephalopathy due to drug overdose, he denies suicidal attempt -Hypoglycemia, reason unknown: Check A1c, treat with dextrose. -Polysubstance drug abuse: Was a confusion resolved will estate planning counselor on stopping -Suspected sepsis ?aspiration pna, ?cellulitis: Continue IV antibiotics, consult infectious disease -3.2cm AAA: Cardiology following. -DVT prophylaxis: scd only due to +fobt 04/30/2017: Mental status is improving and he admits to taking too much heroin which he has stopped for 60 days. His mental status continues to improve and is oriented 3 may discharge tomorrow 05/01/17: cpk still above 1000, once less than 1000 then discharge, a/o x 3 today, denies SI/HI, +FOBT but normal h/h, most likely hemorroidal vs other History Interval history: Patient was seen and examined. Follow-up on current diagnosis/[facility]ter[place] says which is still present. Overnight uneventful. Imaging, nursing note, chart, labs and old chart reviewed. Hospitalist Physical - Physical exam Narrative exam: GEN: Unkempt, BMI 25 NAD, awake alert oriented 3 HEENT: NCAT, EOMI, PERRL, OP Clear NECK: supple, no adenopathy, no thyromegaly, no JVD CVS/HEART: RRR, NORMAL S1S2, NO JVD, pulses present bilaterally CHEST/LUNGS: CTA B, Symmetrical chest expansion, good air entry bilaterally GI/Abdomen: soft, NTND, good bowel sounds, no guarding or rebound /Bladder: no suprapubic tenderness, no CVA or paraspinal tenderness EXT/Skin: no c/c/e, no obvious rash MSK: FROM x 4 Neuro: CN 2-12 grossly intact, no new focal deficits Psych: calm - Constitutional Vitals: Temp Pulse Resp BP Pulse Ox 98.9 F 54 L 18 138/89 99 05/01/17 12:46 05/01/17 12:46 05/01/17 12:46 05/01/17 12:46 05/01/17 12:46 General appearance: Present: no acute distress, other (lethargic) Results - Labs CBC & Chem 7: 04/30/17 05:48 04/30/17 05:48 Labs: Laboratory Last Values WBC 18.1 K/mm3 (4.5-11.0) H 04/30/17 05:48 RBC 4.37 M/mm3 (3.65-5.03) 04/30/17 05:48 Hgb 14.5 gm/dl (11.8-15.2) 04/30/17 05:48 Hct 40.5 % (35.5-45.6) D 04/30/17 05:48 MCV 93 fl (84-94) 04/30/17 05:48 MCH 33 pg (28-32) H 04/30/17 05:48 MCHC 36 % (32-34) H 04/30/17 05:48 RDW 16.1 % (13.2-15.2) H 04/30/17 05:48 Plt Count 213 K/mm3 (140-440) 04/30/17 05:48 Add Manual Diff Complete 04/28/17 07:43 Total Counted 100 04/28/17 07:43 Seg Neuts % (Manual) 90.0 % (40.0-70.0) H 04/28/17 07:43 Band Neutrophils % 1.0 % 04/28/17 07:43 Lymphocytes % (Manual) 2.0 % (13.4-35.0) L 04/28/17 07:43 Reactive Lymphs % (Man) 0 % 04/28/17 07:43 Monocytes % (Manual) 7.0 % (0.0-7.3) 04/28/17 07:43 Eosinophils % (Manual) 0 % (0.0-4.3) 04/28/17 07:43 Basophils % (Manual) 0 % (0.0-1.8) 04/28/17 07:43 Metamyelocytes % 0 % 04/28/17 07:43 Myelocytes % 0 % 04/28/17 07:43 Promyelocytes % 0 % 04/28/17 07:43 Blast Cells % 0 % 04/28/17 07:43 Nucleated RBC % Not Reportable 04/28/17 07:43 Seg Neutrophils # Man 31.1 K/mm3 (1.8-7.7) H 04/28/17 07:43 Band Neutrophils # 0.3 K/mm3 04/28/17 07:43 Lymphocytes # (Manual) 0.7 K/mm3 (1.2-5.4) L 04/28/17 07:43 Abs React Lymphs (Man) 0.0 K/mm3 04/28/17 07:43 Monocytes # (Manual) 2.4 K/mm3 (0.0-0.8) H 04/28/17 07:43 Eosinophils # (Manual) 0.0 K/mm3 (0.0-0.4) 04/28/17 07:43 Basophils # (Manual) 0.0 K/mm3 (0.0-0.1) 04/28/17 07:43 Metamyelocytes # 0.0 K/mm3 04/28/17 07:43 Myelocytes # 0.0 K/mm3 04/28/17 07:43 Promyelocytes # 0.0 K/mm3 04/28/17 07:43 Blast Cells # 0.0 K/mm3 04/28/17 07:43 WBC Morphology Not Reportable 04/28/17 07:43 Hypersegmented Neuts Not Reportable 04/28/17 07:43 Hyposegmented Neuts Not Reportable 04/28/17 07:43 Hypogranular Neuts Not Reportable 04/28/17 07:43 Smudge Cells Not Reportable 04/28/17 07:43 Toxic Granulation Not Reportable 04/28/17 07:43 Toxic Vacuolation Not Reportable 04/28/17 07:43 Dohle Bodies Not Reportable 04/28/17 07:43 Pelger-Huet Anomaly Not Reportable 04/28/17 07:43 Merlene Rods Not Reportable 04/28/17 07:43 Platelet Estimate Not Reportable 04/28/17 07:43 Clumped Platelets Not Reportable 04/28/17 07:43 Plt Clumps, EDTA Not Reportable 04/28/17 07:43 Large Platelets Not Reportable 04/28/17 07:43 Giant Platelets Not Reportable 04/28/17 07:43 Platelet Satelliting Not Reportable 04/28/17 07:43 Plt Morphology Comment Not Reportable 04/28/17 07:43 RBC Morphology Normal 04/28/17 07:43 Dimorphic RBCs Not Reportable 04/28/17 07:43 Polychromasia Not Reportable 04/28/17 07:43 Hypochromasia Not Reportable 04/28/17 07:43 Poikilocytosis Not Reportable 04/28/17 07:43 Anisocytosis Not Reportable 04/28/17 07:43 Microcytosis Not Reportable 04/28/17 07:43 Macrocytosis Not Reportable 04/28/17 07:43 Spherocytes Not Reportable 04/28/17 07:43 Pappenheimer Bodies Not Reportable 04/28/17 07:43 Sickle Cells Not Reportable 04/28/17 07:43 Target Cells Not Reportable 04/28/17 07:43 Tear Drop Cells Not Reportable 04/28/17 07:43 Ovalocytes Not Reportable 04/28/17 07:43 Helmet Cells Not Reportable 04/28/17 07:43 [place] Bodies Not Reportable 04/28/17 07:43 [place] Rings Not Reportable 04/28/17 07:43 Victorino Cells Not Reportable 04/28/17 07:43 Bite Cells Not Reportable 04/28/17 07:43 Crenated Cell Not Reportable 04/28/17 07:43 Elliptocytes Not Reportable 04/28/17 07:43 Acanthocytes (Spur) Not Reportable 04/28/17 07:43 Rouleaux Not Reportable 04/28/17 07:43 Hemoglobin C Crystals Not Reportable 04/28/17 07:43 Schistocytes Not Reportable 04/28/17 07:43 Malaria parasites Not Reportable 04/28/17 07:43 Gopi Bodies Not Reportable 04/28/17 07:43 Hem Pathologist Commnt No 04/28/17 07:43 PT 14.0 Sec. (12.2-14.9) 04/28/17 07:43 INR 1.03 (0.87-1.13) 04/28/17 07:43 APTT 29.2 Sec. (24.2-36.6) 04/28/17 07:43 VBG pH 7.275 (7.320-7.420) L 04/28/17 08:57 Sodium 146 mmol/L (137-145) H 04/30/17 05:48 Potassium 3.1 mmol/L (3.6-5.0) L 04/30/17 05:48 Chloride 110.7 mmol/L (98-107) H 04/30/17 05:48 Carbon Dioxide 22 mmol/L (22-30) 04/30/17 05:48 Anion Gap 16 mmol/L 04/30/17 05:48 BUN 8 mg/dL (9-20) L 04/30/17 05:48 Creatinine 0.7 mg/dL (0.8-1.5) L 04/30/17 05:48 Estimated GFR > 60 ml/min 04/30/17 05:48 BUN/Creatinine Ratio 11 % 04/30/17 05:48 Glucose 112 mg/dL (75-100) H 04/30/17 05:48 POC Glucose 89 (70-105) 04/28/17 17:13 Osmolality 290 Mosm/kg 04/28/17 07:43 Lactic Acid 1.10 mmol/L (0.7-2.0) 04/28/17 14:53 Calcium 7.7 mg/dL (8.4-10.2) L 04/30/17 05:48 Phosphorus 1.50 mg/dL (2.5-4.5) L 04/29/17 08:09 Magnesium 1.90 mg/dL (1.7-2.3) 04/30/17 05:48 Total Bilirubin 1.00 mg/dL (0.1-1.2) 04/30/17 05:48 AST 65 units/L (5-40) H 04/30/17 05:48 ALT 63 units/L (7-56) H 04/30/17 05:48 Alkaline Phosphatase 60 units/L (35-129) 04/30/17 05:48 Ammonia < 10.0 umol/L (25-60) L 04/29/17 08:09 Total Creatine Kinase 1016 units/L (55-170) H 05/01/17 08:14 CK-MB (CK-2) 56.2 ng/mL (0.0-4.0) H 04/28/17 13:23 CK-MB (CK-2) Rel Index 1.0 (0-4) 04/28/17 13:23 Troponin T 0.058 ng/mL (0.00-0.029) H 04/28/17 Unknown Total Protein 4.9 g/dL (6.3-8.2) L D 04/30/17 05:48 Albumin 2.5 g/dL (3.9-5) L 04/30/17 05:48 Albumin/Globulin Ratio 1.0 % 04/30/17 05:48 Triglycerides 64 mg/dL (2-149) 04/28/17 Unknown Cholesterol 140 mg/dL (50-199) 04/28/17 Unknown LDL Cholesterol Direct 64 mg/dL (50-130) 04/28/17 Unknown HDL Cholesterol 64 mg/dL (40-59) H 04/28/17 Unknown Cholesterol/HDL Ratio 2.18 % 04/28/17 Unknown Amylase 70 units/L (27-131) 04/29/17 08:09 Lipase 208 units/L (13-60) H 04/28/17 Unknown Urine Color Diamante (Yellow) 04/28/17 09:09 Urine Turbidity Slightly-cloudy (Clear) 04/28/17 09:09 Urine pH 5.0 (5.0-7.0) 04/28/17 09:09 Ur Specific [place] 1.023 (1.003-1.030) 04/28/17 09:09 Urine Protein 100 mg/dl mg/dL (Negative) 04/28/17 09:09 Urine Glucose (UA) Neg mg/dL (Negative) 04/28/17 09:09 Urine Ketones Neg mg/dL (Negative) 04/28/17 09:09 Urine Blood Lg (Negative) 04/28/17 09:09 Urine Nitrite Neg (Negative) 04/28/17 09:09 Urine Bilirubin Neg (Negative) 04/28/17 09:09 Urine Urobilinogen 4.0 mg/dL (<2.0) 04/28/17 09:09 Ur Leukocyte Esterase Neg (Negative) 04/28/17 09:09 Urine WBC (Auto) 15.0 /HPF (0.0-6.0) H 04/28/17 09:09 Urine RBC (Auto) 11.0 /HPF (0.0-6.0) 04/28/17 09:09 U Epithel Cells (Auto) 1.0 /HPF (0-13.0) 04/28/17 09:09 Urine Bacteria (Auto) 1+ /HPF (Negative) 04/28/17 09:09 Urine Mucus Few /HPF 04/28/17 09:09 Vancomycin Trough 6.6 ug/mL (5.0-20.0) 05/01/17 13:17 Salicylates < 0.3 mg/dL (2.8-20.0) L 04/28/17 09:09 Urine Opiates Screen Presumptive positive 04/28/17 09:09 Urine Methadone Screen Presumptive negative 04/28/17 09:09 Acetaminophen < 15.0 ug/mL (10.0-30.0) 04/28/17 09:09 Ur Barbiturates Screen Presumptive negative 04/28/17 09:09 Ur Phencyclidine Scrn Presumptive negative 04/28/17 09:09 Ur Amphetamines Screen Presumptive positive 04/28/17 09:09 Phenobarbital < 2.4 mg/L (15.0-40.0) L 04/28/17 07:43 U Benzodiazepines Scrn Presumptive positive 04/28/17 09:09 Urine Cocaine Screen Presumptive positive 04/28/17 09:09 U Marijuana (THC) Screen Presumptive negative 04/28/17 09:09 Drugs of Abuse Note Disclamer 04/28/17 09:09 Plasma/Serum Alcohol < 0.01 gm% (0-0.07) 04/28/17 09:09 C. difficile Toxin A&B Negative (Negative) 04/28/17 15:36 Hepatitis A IgM Ab Non-reactive (NonReactive) 04/28/17 08:57 Hep Bs Antigen Non-reactive (Negative) 04/28/17 08:57 Hep B Core IgM Ab Non-reactive (NonReactive) 04/28/17 08:57 Hepatitis C Antibody Non-reactive (NonReactive) 04/28/17 08:57
[2017-05-01] MEDS ORDERED: HABITROL TD SCH (20:30)
--- NOTE | 2017-05-01 23:15 | Event Note ---
Date: 05/01/17 Patient awake.Resting on room air. O2 saturation 99% on room air.No complaint of chest pain,shortness of breath or cough. Since patient does not have respiratory symptoms at this time, Signing off the case.If any pulmonary help needed, call us back.
[2017-05-02] MEDS: D5NS 1,000 ML IV SCH (05:44)
[2017-05-02] MEDS: ZOSYN/NS 4.5GM/100ML 4.5 GM/100 ML VIAL IV SCH (05:44)
[2017-05-02 06:38] LABS: Mean Corpuscular HGB Conc 36 % (32-34); Mean Corpuscular Hemoglobin 33 pg (28-32); Mean Corpuscular Volume 91 fl (84-94); Platelet Count 240 K/mm3 (140-440); Red Blood Count 4.49 M/mm3 (3.65-5.03)
[2017-05-02 06:52] LABS: Hemoglobin 14.8 gm/dl (11.8-15.2)
[2017-05-02 06:55] LABS: BUN/Creatinine Ratio 6; Blood Urea Nitrogen 5 mg/dL (9-20); Hemolysis Index 6
[2017-05-02 12:38] VITALS: BP 134/81
--- NOTE | 2017-05-02 13:46 | Progress Note ---
Assessment and Plan Assessment and plan: Patient is 52-year-old man who presents to [facility] emergency department with unresponsiveness from a local hotel. He was found to have opiates, amphetamine , cocaine and benzodiazepine and urine drug screen. He was found to have a white count of 34.6, blood glucose of 25 CT abdomen and pelvis with IV contrast: Bilateral lower lobe consolidation subsegmental atelectasis or infiltrate, diffuse fatty liver, left adrenal adenoma, nonobstructive bilateral renal calculi, subtle bilateral renal cysts, 3.2 cm AP diameter infrarenal abdominal aortic aneurysm, top normal size mildly enlarged prostate, correlate with PSA, mild degenerative disc L5-S1 neural foramen stenosis, soft tissue swelling overlying the mid line lower lumbar subcutaneous fat posteriorly as well as overlying the left buttocks and left hip , correlate for possible cellulitis/hematoma, splenectomy. CT brain without contrast read as partially motion compromised exam without evidence of acute intracranial process. 1.3 cm inferior right maxillary sinus retention cyst versus polyp Portable chest x-ray read as unremarkable, no evidence of aspiration at this time -Acute toxic metabolic encephalopathy due to drug overdose, he denies suicidal attempt -Hypoglycemia, reason unknown: Check A1c, treat with dextrose. -Polysubstance drug abuse: Was a confusion resolved will residential treatment counselor on stopping -Suspected sepsis ?aspiration pna, ?cellulitis: Continue IV antibiotics, consult infectious disease -3.2cm AAA: Cardiology following. -DVT prophylaxis: scd only due to +fobt 04/30/2017: Mental status is improving and he admits to taking too much heroin which he has stopped for 60 days. His mental status continues to improve and is oriented 3 may discharge tomorrow 05/01/17: cpk still above 1000, once less than 1000 then discharge, a/o x 3 today, denies SI/HI, +FOBT but normal h/h, most likely hemorroidal vs other History Interval history: Patient was seen and examined. Follow-up on current diagnosis/[place]ter[place] says which is still present. Overnight uneventful. Imaging, nursing note, chart, labs and old chart reviewed. Hospitalist Physical - Physical exam Narrative exam: GEN: Unkempt, BMI 25 NAD, awake alert oriented 3 HEENT: NCAT, EOMI, PERRL, OP Clear NECK: supple, no adenopathy, no thyromegaly, no JVD CVS/HEART: RRR, NORMAL S1S2, NO JVD, pulses present bilaterally CHEST/LUNGS: CTA B, Symmetrical chest expansion, good air entry bilaterally GI/Abdomen: soft, NTND, good bowel sounds, no guarding or rebound /Bladder: no suprapubic tenderness, no CVA or paraspinal tenderness EXT/Skin: no c/c/e, no obvious rash MSK: FROM x 4 Neuro: CN 2-12 grossly intact, no new focal deficits Psych: calm - Constitutional Vitals: Temp Pulse Resp BP Pulse Ox 99.2 F 60 20 134/81 97 05/02/17 07:26 05/02/17 11:52 05/02/17 07:26 05/02/17 11:52 05/02/17 11:52 General appearance: Present: no acute distress, other (lethargic) Results - Labs CBC & Chem 7: 05/02/17 05:48 05/02/17 05:48 Labs: Laboratory Last Values WBC 16.0 K/mm3 (4.5-11.0) H 05/02/17 05:48 RBC 4.49 M/mm3 (3.65-5.03) 05/02/17 05:48 Hgb 14.8 gm/dl (11.8-15.2) 05/02/17 05:48 Hct 41.0 % (35.5-45.6) 05/02/17 05:48 MCV 91 fl (84-94) 05/02/17 05:48 MCH 33 pg (28-32) H 05/02/17 05:48 MCHC 36 % (32-34) H 05/02/17 05:48 RDW 16.0 % (13.2-15.2) H 05/02/17 05:48 Plt Count 240 K/mm3 (140-440) 05/02/17 05:48 Add Manual Diff Complete 04/28/17 07:43 Total Counted 100 04/28/17 07:43 Seg Neuts % (Manual) 90.0 % (40.0-70.0) H 04/28/17 07:43 Band Neutrophils % 1.0 % 04/28/17 07:43 Lymphocytes % (Manual) 2.0 % (13.4-35.0) L 04/28/17 07:43 Reactive Lymphs % (Man) 0 % 04/28/17 07:43 Monocytes % (Manual) 7.0 % (0.0-7.3) 04/28/17 07:43 Eosinophils % (Manual) 0 % (0.0-4.3) 04/28/17 07:43 Basophils % (Manual) 0 % (0.0-1.8) 04/28/17 07:43 Metamyelocytes % 0 % 04/28/17 07:43 Myelocytes % 0 % 04/28/17 07:43 Promyelocytes % 0 % 04/28/17 07:43 Blast Cells % 0 % 04/28/17 07:43 Nucleated RBC % Not Reportable 04/28/17 07:43 Seg Neutrophils # Man 31.1 K/mm3 (1.8-7.7) H 04/28/17 07:43 Band Neutrophils # 0.3 K/mm3 04/28/17 07:43 Lymphocytes # (Manual) 0.7 K/mm3 (1.2-5.4) L 04/28/17 07:43 Abs React Lymphs (Man) 0.0 K/mm3 04/28/17 07:43 Monocytes # (Manual) 2.4 K/mm3 (0.0-0.8) H 04/28/17 07:43 Eosinophils # (Manual) 0.0 K/mm3 (0.0-0.4) 04/28/17 07:43 Basophils # (Manual) 0.0 K/mm3 (0.0-0.1) 04/28/17 07:43 Metamyelocytes # 0.0 K/mm3 04/28/17 07:43 Myelocytes # 0.0 K/mm3 04/28/17 07:43 Promyelocytes # 0.0 K/mm3 04/28/17 07:43 Blast Cells # 0.0 K/mm3 04/28/17 07:43 WBC Morphology Not Reportable 04/28/17 07:43 Hypersegmented Neuts Not Reportable 04/28/17 07:43 Hyposegmented Neuts Not Reportable 04/28/17 07:43 Hypogranular Neuts Not Reportable 04/28/17 07:43 Smudge Cells Not Reportable 04/28/17 07:43 Toxic Granulation Not Reportable 04/28/17 07:43 Toxic Vacuolation Not Reportable 04/28/17 07:43 Dohle Bodies Not Reportable 04/28/17 07:43 Pelger-Huet Anomaly Not Reportable 04/28/17 07:43 Merlene Rods Not Reportable 04/28/17 07:43 Platelet Estimate Not Reportable 04/28/17 07:43 Clumped Platelets Not Reportable 04/28/17 07:43 Plt Clumps, EDTA Not Reportable 04/28/17 07:43 Large Platelets Not Reportable 04/28/17 07:43 Giant Platelets Not Reportable 04/28/17 07:43 Platelet Satelliting Not Reportable 04/28/17 07:43 Plt Morphology Comment Not Reportable 04/28/17 07:43 RBC Morphology Normal 04/28/17 07:43 Dimorphic RBCs Not Reportable 04/28/17 07:43 Polychromasia Not Reportable 04/28/17 07:43 Hypochromasia Not Reportable 04/28/17 07:43 Poikilocytosis Not Reportable 04/28/17 07:43 Anisocytosis Not Reportable 04/28/17 07:43 Microcytosis Not Reportable 04/28/17 07:43 Macrocytosis Not Reportable 04/28/17 07:43 Spherocytes Not Reportable 04/28/17 07:43 Pappenheimer Bodies Not Reportable 04/28/17 07:43 Sickle Cells Not Reportable 04/28/17 07:43 Target Cells Not Reportable 04/28/17 07:43 Tear Drop Cells Not Reportable 04/28/17 07:43 Ovalocytes Not Reportable 04/28/17 07:43 Helmet Cells Not Reportable 04/28/17 07:43 [place] Bodies Not Reportable 04/28/17 07:43 [place] Rings Not Reportable 04/28/17 07:43 Victorino Cells Not Reportable 04/28/17 07:43 Bite Cells Not Reportable 04/28/17 07:43 Crenated Cell Not Reportable 04/28/17 07:43 Elliptocytes Not Reportable 04/28/17 07:43 Acanthocytes (Spur) Not Reportable 04/28/17 07:43 Rouleaux Not Reportable 04/28/17 07:43 Hemoglobin C Crystals Not Reportable 04/28/17 07:43 Schistocytes Not Reportable 04/28/17 07:43 Malaria parasites Not Reportable 04/28/17 07:43 Gopi Bodies Not Reportable 04/28/17 07:43 Hem Pathologist Commnt No 04/28/17 07:43 PT 14.0 Sec. (12.2-14.9) 04/28/17 07:43 INR 1.03 (0.87-1.13) 04/28/17 07:43 APTT 29.2 Sec. (24.2-36.6) 04/28/17 07:43 VBG pH 7.275 (7.320-7.420) L 04/28/17 08:57 Sodium 146 mmol/L (137-145) H 05/02/17 05:48 Potassium 3.0 mmol/L (3.6-5.0) L 05/02/17 05:48 Chloride 109.0 mmol/L (98-107) H 05/02/17 05:48 Carbon Dioxide 25 mmol/L (22-30) 05/02/17 05:48 Anion Gap 15 mmol/L 05/02/17 05:48 BUN 5 mg/dL (9-20) L 05/02/17 05:48 Creatinine 0.9 mg/dL (0.8-1.5) 05/02/17 05:48 Estimated GFR > 60 ml/min 05/02/17 05:48 BUN/Creatinine Ratio 6 % 05/02/17 05:48 Glucose 101 mg/dL (75-100) H 05/02/17 05:48 POC Glucose 89 (70-105) 04/28/17 17:13 Osmolality 290 Mosm/kg 04/28/17 07:43 Lactic Acid 1.10 mmol/L (0.7-2.0) 04/28/17 14:53 Calcium 8.0 mg/dL (8.4-10.2) L 05/02/17 05:48 Phosphorus 1.50 mg/dL (2.5-4.5) L 04/29/17 08:09 Magnesium 1.90 mg/dL (1.7-2.3) 04/30/17 05:48 Total Bilirubin 1.00 mg/dL (0.1-1.2) 04/30/17 05:48 AST 65 units/L (5-40) H 04/30/17 05:48 ALT 63 units/L (7-56) H 04/30/17 05:48 Alkaline Phosphatase 60 units/L (35-129) 04/30/17 05:48 Ammonia < 10.0 umol/L (25-60) L 04/29/17 08:09 Total Creatine Kinase 517 units/L (55-170) H 05/02/17 05:48 CK-MB (CK-2) 56.2 ng/mL (0.0-4.0) H 04/28/17 13:23 CK-MB (CK-2) Rel Index 1.0 (0-4) 04/28/17 13:23 Troponin T 0.058 ng/mL (0.00-0.029) H 04/28/17 Unknown Total Protein 4.9 g/dL (6.3-8.2) L D 04/30/17 05:48 Albumin 2.5 g/dL (3.9-5) L 04/30/17 05:48 Albumin/Globulin Ratio 1.0 % 04/30/17 05:48 Triglycerides 64 mg/dL (2-149) 04/28/17 Unknown Cholesterol 140 mg/dL (50-199) 04/28/17 Unknown LDL Cholesterol Direct 64 mg/dL (50-130) 04/28/17 Unknown HDL Cholesterol 64 mg/dL (40-59) H 04/28/17 Unknown Cholesterol/HDL Ratio 2.18 % 04/28/17 Unknown Amylase 70 units/L (27-131) 04/29/17 08:09 Lipase 208 units/L (13-60) H 04/28/17 Unknown Urine Color [place]amante (Yellow) 04/28/17 09:09 Urine Turbidity Slightly-cloudy (Clear) 04/28/17 09:09 Urine pH 5.0 (5.0-7.0) 04/28/17 09:09 Ur Specific [place] 1.023 (1.003-1.030) 04/28/17 09:09 Urine Protein 100 mg/dl mg/dL (Negative) 04/28/17 09:09 Urine Glucose (UA) Neg mg/dL (Negative) 04/28/17 09:09 Urine Ketones Neg mg/dL (Negative) 04/28/17 09:09 Urine Blood Lg (Negative) 04/28/17 09:09 Urine Nitrite Neg (Negative) 04/28/17 09:09 Urine Bilirubin Neg (Negative) 04/28/17 09:09 Urine Urobilinogen 4.0 mg/dL (<2.0) 04/28/17 09:09 Ur Leukocyte Esterase Neg (Negative) 04/28/17 09:09 Urine WBC (Auto) 15.0 /HPF (0.0-6.0) H 04/28/17 09:09 Urine RBC (Auto) 11.0 /HPF (0.0-6.0) 04/28/17 09:09 U Epithel Cells (Auto) 1.0 /HPF (0-13.0) 04/28/17 09:09 Urine Bacteria (Auto) 1+ /HPF (Negative) 04/28/17 09:09 Urine Mucus Few /HPF 04/28/17 09:09 Vancomycin Trough 6.6 ug/mL (5.0-20.0) 05/01/17 13:17 Salicylates < 0.3 mg/dL (2.8-20.0) L 04/28/17 09:09 Urine Opiates Screen Presumptive positive 04/28/17 09:09 Urine Methadone Screen Presumptive negative 04/28/17 09:09 Acetaminophen < 15.0 ug/mL (10.0-30.0) 04/28/17 09:09 Ur Barbiturates Screen Presumptive negative 04/28/17 09:09 Ur Phencyclidine Scrn Presumptive negative 04/28/17 09:09 Ur Amphetamines Screen Presumptive positive 04/28/17 09:09 Phenobarbital < 2.4 mg/L (15.0-40.0) L 04/28/17 07:43 U Benzodiazepines Scrn Presumptive positive 04/28/17 09:09 Urine Cocaine Screen Presumptive positive 04/28/17 09:09 U Marijuana (THC) Screen Presumptive negative 04/28/17 09:09 Drugs of Abuse Note Disclamer 04/28/17 09:09 Plasma/Serum Alcohol < 0.01 gm% (0-0.07) 04/28/17 09:09 C. difficile Toxin A&B Negative (Negative) 04/28/17 15:36 Hepatitis A IgM Ab Non-reactive (NonReactive) 04/28/17 08:57 Hep Bs Antigen Non-reactive (Negative) 04/28/17 08:57 Hep B Core IgM Ab Non-reactive (NonReactive) 04/28/17 08:57 Hepatitis C Antibody Non-reactive (NonReactive) 04/28/17 08:57
--- NOTE | 2017-05-02 13:49 | Discharge Summary ---
Providers - Providers Date of Admission: 04/28/17 13:35 Date of discharge: 05/02/17 Attending physician: SARAHY WHEELER 04/28/17 17:40 Consult to Physician [CONS] Routine Consulting Provider: YANNA MÁRQUEZ Reason For Exam: critical care management Place consult to:: Dr. Márquez Notified:: Her number Phone number called:: Her Number Was contact made?: Yes If yes, spoke with:: Dr. Márquez Time called:: 17:35 04/29/17 07:25 Consult to Physician [CONS] Routine Consulting Provider: PHYLLIS MYLES Reason For Exam: Elevated troponin Place consult to:: Dr. Myles Notified:: Yes Was contact made?: Yes If yes, spoke with:: Konrad Regan Time called:: 10:50 Comment:: Overhead paged Consult to Physician [CONS] Routine Consulting Provider: CAMILLE MARTINEZ Reason For Exam: sepsis Place consult to:: Dr. Simpson Notified:: Yes Phone number called:: [phone] Was contact made?: Yes If yes, spoke with:: Dr. 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 He was found to have opiates, amphetamine , cocaine and benzodiazepine and urine drug screen. He was found to have a white count of 34.6, blood glucose of 25 CT abdomen and pelvis with IV contrast: Bilateral lower lobe consolidation subsegmental atelectasis or infiltrate, diffuse fatty liver, left adrenal adenoma, nonobstructive bilateral renal calculi, subtle bilateral renal cysts, 3.2 cm AP diameter infrarenal abdominal aortic aneurysm, top normal size mildly enlarged prostate, correlate with PSA, mild degenerative disc L5-S1 neural foramen stenosis, soft tissue swelling overlying the mid line lower lumbar subcutaneous fat posteriorly as well as overlying the left buttocks and left hip , correlate for possible cellulitis/hematoma, splenectomy. CT brain without contrast read as partially motion compromised exam without evidence of acute intracranial process. 1.3 cm inferior right maxillary sinus retention cyst versus polyp Portable chest x-ray read as unremarkable, no evidence of aspiration at this time -Acute toxic metabolic encephalopathy due to drug overdose, he denies suicidal attempt -Hypoglycemia, reason unknown: Check A1c, treat with dextrose. 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 -DVT prophylaxis: scd only due to +fobt 04/30/2017: Mental status is improving and he admits to taking too much heroin which he has stopped for 60 days. His mental status continues to improve and is oriented 3 may discharge tomorrow 05/01/17: cpk still above 1000, once less than 1000 then discharge, a/o x 3 today, denies SI/HI, +FOBT but normal h/h, most likely hemorroidal vs other Disposition: DC-01 TO HOME OR SELFCARE Time spent for discharge: 35 minutes Core Measure Documentation - Palliative Care Palliative Care/ Comfort Measures: Not Applicable - Core Measures Any of the following diagnoses?: none - VTE Discharge Requirements Deep Vein Thrombosis/Pulmonary Embolism Present on Admission: No Has pt received <5 days of overlap therapy or INR<2.0: No Anticoagulant overlap therapy prescribed at discharge: No Contraindication No Overlap Therapy order at DC: Not Indicated Exam - Physical Exam Narrative exam: GEN: Unkempt, BMI 25 NAD, awake alert oriented 3 HEENT: NCAT, EOMI, PERRL, OP Clear NECK: supple, no adenopathy, no thyromegaly, no JVD CVS/HEART: RRR, NORMAL S1S2, NO JVD, pulses present bilaterally CHEST/LUNGS: CTA B, Symmetrical chest expansion, good air entry bilaterally GI/Abdomen: soft, NTND, good bowel sounds, no guarding or rebound /Bladder: no suprapubic tenderness, no CVA or paraspinal tenderness EXT/Skin: no c/c/e, no obvious rash MSK: FROM x 4 Neuro: CN 2-12 grossly intact, no new focal deficits Psych: calm - Constitutional Vitals: Temp Pulse Resp BP Pulse Ox 99.2 F 60 20 134/81 97 05/02/17 07:26 05/02/17 11:52 05/02/17 07:26 05/02/17 11:52 05/02/17 11:52 Plan Activity: other (no strenous activity until cleared by pcp) Diet: regular Special Instructions: smoking cessation Follow up with: PRIMARY CARE, [Primary Care Provider] - 3-5 Days Prescriptions: Nicotine [Habitrol] 21 mg TD Q24H #14 patch Potassium Chloride [K-Dur] 20 meq PO QDAY #30 tablet
[2017-05-02] MEDS ORDERED: K-DUR PO ONE (14:00)
== END 2017-05-02 17:02 | disposition home or self-care (01) | DRG 871 ==
LOC: ED 07:06 → CC1 13:35 → 4A 04-29 18:46
PROVIDERS: ADMIT Internal Medicine; ATTEND Internal Medicine
PROC: 3E0234Z Introduction of Serum, Toxoid and Vaccine into Muscle, Percutaneous Approach (ICD-10-PCS; principal; 2017-04-29)
DX: A41.9 Sepsis, unspecified organism (principal); G92 Toxic encephalopathy; J69.0 Pneumonitis due to inhalation of food and vomit; E72.20 Disorder of urea cycle metabolism, unspecified; L03.317 Cellulitis of buttock; M62.82 Rhabdomyolysis; N17.9 Acute kidney failure, unspecified; E16.2 Hypoglycemia, unspecified; F19.10 Other psychoactive substance abuse, uncomplicated; D35.02 Benign neoplasm of left adrenal gland; N20.0 Calculus of kidney; N28.1 Cyst of kidney, acquired; I71.4 Abdominal aortic aneurysm, without rupture; T50.991A Poisoning by other drugs, medicaments and biological substances, accidental (unintentional), initial encounter; E86.0 Dehydration; R74.0 Nonspecific elevation of levels of transaminase and lactic acid dehydrogenase [LDH]; Z23 Encounter for immunization; Y92.89 Other specified places as the place of occurrence of the external cause
CPT/HCPCS: 36415; 70450; 71010; 72125; 74177; 80048; 80053; 80061; 80074; 80184; 80202; 80307; 80320; 81001; 82140; 82150; 82270; 82550; 82553; 82805; 82962; 83690; 83735; 83930; 84100; 84484; 85007; 85025; 85027; 85610; 85730; 87040; 87045; 87086; 87324; 90686; 93005; 93010; 96365; 96367; 96375; 96376; G0480; J1630; J2060; J2543; J3370; J3411; J7030; J7042; Q9967